=== PATIENT | male | born 1955 | race Caucasian/White ===

== ENCOUNTER 2016-12-23 12:09 | Observation (INO) ==
--- NOTE | 2016-12-23 12:21 | Emergency Department Note ---
Disposition Clinical Impression: Pleural effusion, Right upper quadrant abdominal pain, Headache, Vomiting, Hypokalemia, History of esophageal cancer, Elevated brain natriuretic peptide ( BNP) level, Cerebrovascular disease, Abnormal EKG, PVCs (premature ventricular contractions) Disposition: Admitted As Inpatient Referrals: Quirino Ramos DO [Primary Care Provider] - Forms: ED Satisfaction Letter, Work/School Release General Adult HPI - General Chief complaint: ED Abdominal Pain Stated complaint: N/V URQ pain Time Seen by Provider: 12/23/16 12:14 Source: patient, family Limitations: no limitations - History of Present Illness HPI Narrative: 61-year-old male with a history of soft legume malignancy and resection reports emergency department complaining of right upper abdominal pain with vomiting. He has had abdominal pain for 4 days. The patient is currently not anticoagulated. He denies bloody emesis or stool. There is no history of trauma or chest pain. There is no history of fever. The patient has had no shortness of breath leg swelling or pain on coughing up blood. The patient describes right upper abdominal pain, he denies previous cholecystectomy. There is no history of back pain. No history of syncope. He describes a headache. He reports he has a history of high blood pressure. No head trauma neck stiffness or rash. No convulsions or confusion. No dysarthria or unilateral arm weakness or numbness. The patient reports significant abdominal pain which has been persistent. Pain Scale: 0 - Related Data Home Medications Medication Instructions Recorded Confirmed Albuterol Sulfate [Ventolin Hfa] 2 puff IH Q4H PRN 07/14/15 10/31/16 Aspirin [Adult Low Dose Aspirin EC] 81 mg PO DAILY 07/14/15 10/31/16 Clopidogrel [Plavix] 75 mg PO DAILY 07/14/15 10/31/16 Losartan Potassium [Cozaar] 50 mg PO DAILY 07/14/15 10/31/16 Montelukast [Singulair] 10 mg PO DAILY 07/14/15 10/31/16 Morphine Sulfate SR (12 HR) [MS 60 mg PO Q12HR 07/14/15 10/31/16 Contin] Multivitamin [Multi-Day Vitamins] 1 tab PO DAILY 07/14/15 10/31/16 Pantoprazole Sodium [Protonix] 40 mg PO BID 07/14/15 10/31/16 Triamterene/HCTZ 37.5/25mg 1 tab PO BID 07/14/15 10/31/16 [Dyazide] Verapamil ER (24 HR) [Calan SR] 360 mg PO QAM 07/14/15 10/31/16 Metoclopramide [Reglan] 10 mg PO QIDAC 07/28/15 10/31/16 Oxycodone HCl [Oxycodone HCl] 20 mg PO Q3H PRN 10/31/16 10/31/16 Promethazine [Phenergan] 25 mg PO Q6HR PRN 10/31/16 10/31/16 Venlafaxine [Effexor] 37.5 mg PO DAILY 10/31/16 10/31/16 Zolpidem [Ambien] 10 mg PO HS 10/31/16 10/31/16 Allergies Allergy/AdvReac Type Severity Reaction Status Date / Time atenolol [From Tenormin] Allergy Hives Verified 07/14/15 13:43 Beta-Blockers Allergy Difficulty Verified 07/14/15 13:43 (Beta-Adrenergic Bloc Breathing midazolam [From Versed] AdvReac Agitated Verified 07/28/15 16:08 All systems ED: reviewed and negative except as stated. Past Medical History - Past Medical History Medical history: Reports: cancer, hypertension, myocardial infarction Surgical history: Reports: other Psychiatric history: Reports: no psych history - Social History Smoking Status: Former smoker Smokeless Tobacco Status: No Alcohol use: Reports: occasionally, recent Drug use: Reports: none Physical Exam - General Limitations: no limitations General appearance: alert, in no apparent distress - Head Head exam: atraumatic, normocephalic, normal inspection - Eye Eye exam: Present: normal appearance, PERRL, EOMI. Absent: scleral icterus, conjunctival injection, miosis, mydriasis - ENT ENT exam: normal exam, normal oropharynx, mucous membranes moist, TM's normal bilaterally, normal external ear exam - Neck Neck exam: Present: normal inspection, full ROM, trachea midline. Absent: meningismus - Chest Chest inspection: Present: symmetric chest wall rise. Absent: tenderness - Respiratory Respiratory exam: Present: normal lung sounds bilaterally. Absent: respiratory distress, wheezes, stridor, accessory muscle use, prolonged expiratory phase - Cardiovascular Cardiovascular exam: Present: regular rate, normal rhythm, normal heart sounds - Abdominal Exam Abdominal exam: Present: soft, tenderness, normal bowel sounds. Absent: distention, guarding, rebound, rigidity, Iqbal's sign, Rovsing's sign, tenderness at McBurney's Point, ascites, pulsatile mass Abdominal tenderness: Present: RUQ, moderate - Extremities Exam Extremities exam: Present: normal inspection, full ROM, normal capillary refill. Absent: tenderness, pedal edema, joint swelling, calf tenderness - Expanded Lower Extremity Exam Lower leg exam: Absent: Homans' sign Neurovascular/Tendon exam: Present: normal capillary refill. Absent: motor deficit, sensory deficit, tendon deficit, extremity cold to touch, pallor - Back Exam Back exam: Present: normal inspection, full ROM. Absent: tenderness, CVA tenderness (R), CVA tenderness (L), vertebral tenderness - Neurological Exam Neurological exam: Present: alert, oriented X3, CN II-XII intact. Absent: motor sensory deficit - Psychiatric Psychiatric exam: Present: normal affect, normal mood - Skin Skin exam: Present: warm, dry, intact, normal color. Absent: rash, cyanosis, diaphoresis, erythema, pallor, mottled Course Vital Signs Temperature 98.3 F 12/23/16 12:11 Pulse Rate 104 12/23/16 12:11 Respiratory Rate 18 12/23/16 12:11 Blood Pressure 180/121 12/23/16 12:11 O2 Sat by Pulse Oximetry 98 12/23/16 12:11 Temperature 98.3 F 12/23/16 12:11 Pulse Rate 82 12/23/16 13:45 Respiratory Rate 18 12/23/16 13:45 Blood Pressure 184/105 12/23/16 13:45 O2 Sat by Pulse Oximetry 97 12/23/16 13:45 Oxygen Delivery Oxygen Delivery Room Air Medical Decision Making - [facility] Narrative Medical decision making narrative: The patient has what appears to be a pleural effusion on the left side, his inflammatory infectious markers are essentially negative, BNP not markedly elevated, he has a history of esophageal malignancy and carcinomatous effusion could be considered. The patient has had recurrent vomiting, he does have a lecture like changes including hypokalemia. His EKG shows slight ST depressions and occasional PVCs. The patient complained of a headache, CT head negative. The patient's abdominal pain seems to be significant on examination but his CT shows no acute intra-abdominal process. Based on the patient's apparent pleural effusion, electrolyte abnormalities, recurrent vomiting, abnormal EKG, occasional PVCs, and history of malignancy, I thought it be appropriate to admit to the hospital for pain control, electrolyte management, and evaluation of pleural fluid left side, blood cultures been sent, antibiotic been initiated. The patient appears to be stable. I discussed the case with the last on-call who is except the patient to their care. The patient is currently stable pending admission. - Lab Data Result diagrams: 12/23/16 13:00 12/23/16 13:00 Lab Results 12/23/16 12/23/16 12/23/16 Range/Units 13:00 13:00 13:00 WBC 5.0 (4.3-11.1) K/mcL RBC 4.86 (4.19-5.50) M/mcL Hgb 15.1 (12.9-16.9) g/dL Hct 43.4 (37.5-50.1) % MCV 89.3 (83.0-100.0) fL MCH 31.1 (28.0-33.3) pg MCHC 34.8 (31.6-35.5) g/dL RDW 12.3 (11.5-14.5) % Plt Count 289 (140-400) K/mcL MPV 8.6 L (9.4-12.4) fL Immature Gran % 0.4 (0-4) % Seg Neutrophils % 72.5 % Lymphocytes % 15.3 % Monocytes % 11.2 % Eosinophils % 0.4 % Basophils % 0.2 % Neutrophils # 3.6 (1.6-8.9) K/mcL Lymphocytes # 0.8 (0.6-4.6) K/mcL Monocytes # 0.6 (0.0-1.3) K/mcL Eosinophils # 0.0 (0.0-0.6) K/mcL Basophils # 0.0 (0.0-0.2) K/mcL PT 11.2 (9.4-12.1) Seconds INR 1.0 APTT 32.7 (26.0-36.0) Seconds Sodium 132 L (136-145) mEq/L Potassium 3.1 L (3.5-4.5) mEq/L Chloride 94 L (98-109) mEq/L Carbon Dioxide 25 (19-29) mEq/L BUN 12 (8-26) mg/dL Creatinine 0.73 (0.72-1.25) mg/dL Est GFR ( Amer) > 60 (> 60) Est GFR (Non-Af Amer) > 60 (> 60) BUN/Creatinine Ratio 16 (6-26) Glucose 122 H (70-99) mg/dL Calculated Osmolality 275 L (280-300) Lactic Acid (0.5-2.2) mmol/L Calcium 9.2 (8.6-10.8) mg/dL Total Bilirubin 0.6 (0.2-1.2) mg/dL Direct Bilirubin 0.2 (0.0-0.5) mg/dL Indirect Bilirubin 0.4 (0.0-1.2) mg/dL AST 16 (5-34) Units/L ALT 15 (0-55) Units/L Alkaline Phosphatase 83 (38-126) Units/L Troponin I (0-0.03) ng/mL C-Reactive Protein (Less than 5) mg/L B-Natriuretic Peptide (0-100) pg/mL Serum Total Protein 7.0 (6.0-8.3) g/dL Albumin 3.7 (3.5-5.0) g/dL Globulin 3.3 (2.4-3.5) g/dL Albumin/Globulin Ratio 1.1 (1.1-2.2) Lipase 6 L (8-78) Units/L 12/23/16 12/23/16 12/23/16 Range/Units 13:00 13:00 13:00 WBC (4.3-11.1) K/mcL RBC (4.19-5.50) M/mcL Hgb (12.9-16.9) g/dL Hct (37.5-50.1) % MCV (83.0-100.0) fL MCH (28.0-33.3) pg MCHC (31.6-35.5) g/dL RDW (11.5-14.5) % Plt Count (140-400) K/mcL MPV (9.4-12.4) fL Immature Gran % (0-4) % Seg Neutrophils % % Lymphocytes % % Monocytes % % Eosinophils % % Basophils % % Neutrophils # (1.6-8.9) K/mcL Lymphocytes # (0.6-4.6) K/mcL Monocytes # (0.0-1.3) K/mcL Eosinophils # (0.0-0.6) K/mcL Basophils # (0.0-0.2) K/mcL PT (9.4-12.1) Seconds INR APTT (26.0-36.0) Seconds Sodium (136-145) mEq/L Potassium (3.5-4.5) mEq/L Chloride (98-109) mEq/L Carbon Dioxide (19-29) mEq/L BUN (8-26) mg/dL Creatinine (0.72-1.25) mg/dL Est GFR ( Amer) (> 60) Est GFR (Non-Af Amer) (> 60) BUN/Creatinine Ratio (6-26) Glucose (70-99) mg/dL Calculated Osmolality (280-300) Lactic Acid 0.8 (0.5-2.2) mmol/L Calcium (8.6-10.8) mg/dL Total Bilirubin (0.2-1.2) mg/dL Direct Bilirubin (0.0-0.5) mg/dL Indirect Bilirubin (0.0-1.2) mg/dL AST (5-34) Units/L ALT (0-55) Units/L Alkaline Phosphatase (38-126) Units/L Troponin I 0.01 (0-0.03) ng/mL C-Reactive Protein 1 (Less than 5) mg/L B-Natriuretic Peptide (0-100) pg/mL Serum Total Protein (6.0-8.3) g/dL Albumin (3.5-5.0) g/dL Globulin (2.4-3.5) g/dL Albumin/Globulin Ratio (1.1-2.2) Lipase (8-78) Units/L /18/17 Range/Units 13:00 WBC (4.3-11.1) K/mcL RBC (4.19-5.50) M/mcL Hgb (12.9-16.9) g/dL Hct (37.5-50.1) % MCV (83.0-100.0) fL MCH (28.0-33.3) pg MCHC (31.6-35.5) g/dL RDW (11.5-14.5) % Plt Count (140-400) K/mcL MPV (9.4-12.4) fL Immature Gran % (0-4) % Seg Neutrophils % % Lymphocytes % % Monocytes % % Eosinophils % % Basophils % % Neutrophils # (1.6-8.9) K/mcL Lymphocytes # (0.6-4.6) K/mcL Monocytes # (0.0-1.3) K/mcL Eosinophils # (0.0-0.6) K/mcL Basophils # (0.0-0.2) K/mcL PT (9.4-12.1) Seconds INR APTT (26.0-36.0) Seconds Sodium (136-145) mEq/L Potassium (3.5-4.5) mEq/L Chloride (98-109) mEq/L Carbon Dioxide (19-29) mEq/L BUN (8-26) mg/dL Creatinine (0.72-1.25) mg/dL Est GFR ( Amer) (> 60) Est GFR (Non-Af Amer) (> 60) BUN/Creatinine Ratio (6-26) Glucose (70-99) mg/dL Calculated Osmolality (280-300) Lactic Acid (0.5-2.2) mmol/L Calcium (8.6-10.8) mg/dL Total Bilirubin (0.2-1.2) mg/dL Direct Bilirubin (0.0-0.5) mg/dL Indirect Bilirubin (0.0-1.2) mg/dL AST (5-34) Units/L ALT (0-55) Units/L Alkaline Phosphatase (38-126) Units/L Troponin I (0-0.03) ng/mL C-Reactive Protein (Less than 5) mg/L B-Natriuretic Peptide 169 H (0-100) pg/mL Serum Total Protein (6.0-8.3) g/dL Albumin (3.5-5.0) g/dL Globulin (2.4-3.5) g/dL Albumin/Globulin Ratio (1.1-2.2) Lipase (8-78) Units/L
[2016-12-23] MEDS ORDERED: *HR* HYDROmorphone (PF) 1 MG/ML SYRINGE IVP ONE ×2 (13:07→16:49)
[2016-12-23] MEDS ORDERED: Ondansetron 4 MG/2 ML VIAL IVP ONE ×2 (13:07→16:49)
[2016-12-23 13:17] LABS: Basophils % 0.2 %; Eosinophils % 0.4 %; Hematocrit 43.4 % (37.5-50.1); Hemoglobin 15.1 g/dL (12.9-16.9); Immature Granulocytes % 0.4 % (0-4); Lymphocytes # 0.8 K/mcL (0.6-4.6); Lymphocytes % 15.3 %; Mean Corpuscular HGB Conc 34.8 g/dL (31.6-35.5); Mean Corpuscular Hemoglobin 31.1 pg (28.0-33.3); Mean Corpuscular Volume 89.3 fL (83.0-100.0); Mean Platelet Volume 8.6 fL (9.4-12.4); Monocytes # 0.6 K/mcL (0.0-1.3); Monocytes % 11.2 %; Neutrophils # 3.6 K/mcL (1.6-8.9); Platelet Count 289 K/mcL (140-400); Red Blood Count 4.86 M/mcL (4.19-5.50); Red Cell Distribution Width 12.3 % (11.5-14.5); Segmented Neutrophils % 72.5 %
[2016-12-23 13:24] LABS: Prothrombin Time 11.2 Seconds (9.4-12.1)
[2016-12-23 13:26] LABS: Activated Partial Thrombo Time 32.7 Seconds (26.0-36.0)
[2016-12-23 13:36] LABS: Alanine Aminotransferase 15 Units/L (0-55); Albumin 3.7 g/dL (3.5-5.0); Albumin/Globulin Ratio 1.1 (1.1-2.2); Alkaline Phosphatase 83 Units/L (38-126); Aspartate Amino Transferase 16 Units/L (5-34); BUN/Creatinine Ratio 16 (6-26); Bilirubin,Direct 0.2 mg/dL (0.0-0.5); Bilirubin,Indirect 0.4 mg/dL (0.0-1.2); Bilirubin,Total 0.6 mg/dL (0.2-1.2); Blood Urea Nitrogen 12 mg/dL (8-26); Calcium 9.2 mg/dL (8.6-10.8); Carbon Dioxide 25 mEq/L (19-29); Chloride 94 mEq/L (98-109); Globulin 3.3 g/dL (2.4-3.5); Glucose 122 mg/dL (70-99); Lipase 6 Units/L (8-78); Osmolality,Calculated 275 (280-300); Potassium 3.1 mEq/L (3.5-4.5); Sodium 132 mEq/L (136-145); eGFR For African Americans > 60 (> 60); eGFR For Non-African Americans > 60 (> 60)
[2016-12-23] MEDS ORDERED: Levofloxacin 750 MG/150 ML 750 MG/150 ML BAG IVPB ONE (15:57)
[2016-12-23] MEDS ORDERED: *HR* HYDROmorphone (PF) 1 MG/ML SYRINGE IVP PRN ×2 (19:34→19:44)
[2016-12-23] MEDS ORDERED: Naloxone 0.4 MG/ML INJ IVP PRN (19:34)
[2016-12-23] MEDS ORDERED: *HR* OxyCODONE Immed Rel 5 MG TABLET PO PRN (19:38)
[2016-12-23] MEDS ORDERED: Pantoprazole 40 MG VIAL IVP SCH (19:45)
[2016-12-23] MEDS ORDERED: 0.9 % Sodium Chloride 1,000 ML IVC SCH ×2 (19:45→22:31)
[2016-12-23] MEDS ORDERED: *HR* Promethazine 25 MG/ML VIAL IVP ONE (20:08)
[2016-12-23] MEDS: Famotidine 20 MG TABLET PO SCH (21:30)
[2016-12-23] MEDS: Aspirin Enteric Coated 81 MG Tablet PO SCH (21:31)
--- NOTE | 2016-12-23 21:36 | Internal Med History&Physical ---
Date of Encounter: 12/23/16 Time of Encounter: 21:32 Assessment and Plan (1) Nausea & vomiting Current visit: Yes Status: Acute Patient with nausea and vomiting since , and was having trouble keeping his medications down, including his pain medicine. He developed severe abdominal pain today. Zofran when necessary for nausea and vomiting Advance diet as tolerated, patient requesting to take PO medications and eat. IV fluids 0.9NS at 100mL/hr Qualifiers: Vomiting type: unspecified Vomiting Intractability: non-intractable Qualified Code(s): R11.2 - Nausea with vomiting, unspecified (2) History of esophagectomy Current visit: No Status: Chronic Patient with history of esophagectomy due to esophageal cancer. He is in remission and follows every 3 months to check for recurrence. He has periodic episodes of nausea and vomiting. He takes chronic narcotics for his cancer related pain. Continue home doses of Pepsid, Protonix. ZOfran PRN for nausea and vomiting. (3) Asthma Current visit: No Status: Chronic Continue singulair. PRN Albuterol inhaler for wheezing or SOB. Qualifiers: Asthma severity: mild intermittent Asthma complication type: uncomplicated Qualified Code(s): J45.20 - Mild intermittent asthma, uncomplicated (4) Hypertension Current visit: No Status: Chronic Patient hypertensive since arrival with blood pressures in 180s/100s, likely related to abdominal pain. ALso, patient reports he takes his medications in the evening. Continue home doses of losartan and verapamil. Hydralazine PRN for SBP > 160 or DBP > 100. Qualifiers: Hypertension type: essential hypertension Qualified Code(s): I10 - Essential (primary) hypertension (5) Abdominal pain Current visit: No Status: Chronic Patient reports severe abdominal pain. He has been nauseous and vomiting since . Patient on chronic narcotics related to previous cancer pain, and was unable to keep medications down. Abdominal pain may be related to withdrawal from pain medications. Patient reports he is able to take his PO medications now. Will continue his Morphine sulfate 60mg BID, and use dilaudid 2mg IVP q3hr for breakthrough pain. Transition to home dose of 20mg oxycodone Q3hr PRN once better tolerating PO. Zofran PRN for nausea. Narcan PRN for respiratory depression. Qualifiers: Abdominal location: upper abdomen, unspecified Qualified Code(s): R10.10 - Upper abdominal pain, unspecified (6) Hypokalemia Current visit: Yes Status: Acute Potassium of 3.1, likely related to nausea and vomiting. 40mEq of PO potassium given in ED. Will give 20mEq more. Recheck chemistry with morning labs. (7) DVT prophylaxis Current visit: No Status: Acute Internal Medicine - H&P: HPI Chief complaint: abdominal pain, nausea and vomiting Admitted From: Emergency Dept Plans for Post Hospital Care: Home History of present illness: Mr. Flood is a 61 year old male with hypertension, coronary artery disease, asthma, history of esophageal cancer status post esophagectomy with gastric pull -up presented to the emergency department today with complaints of abdominal pain, nausea and vomiting. Patient reports that the nausea and vomiting started on and progressed he was unable to keep down oral medications including his chronic pain medicine and he developed severe abdominal pain. Patient reports mild headache, chills, sweats. He denies any lightheadedness, chest pain, palpitations, shortness of breath, diarrhea. Evaluation in the emergency department included a head CT which showed no acute intracranial abnormality. CT of the abdomen and pelvis showed a small left pleural effusion with left lower lobe airspace atelectasis or pneumonia, chest x-ray showed small layering pleural effusion. BNP was mildly elevated at 169, troponin was normal at 0.01, lactate was normal at 0.8. He was mildly hypokalemic with potassium of 3.1. LFTs and lipase are within normal limits. White blood cell count was normal at 5.0. On exam, patient alert and oriented, in no acute distress. Heart has regular rate and rhythm, lungs are clear bilaterally to auscultation. Abdomen is tender to palpation in right upper quadrant and left upper quadrant. No peripheral edema. Past Med Surg Social Fam HX - Past Medical History Medical history: asthma, cancer (esophageal caner), hypertension, myocardial infarction Psychiatric history: no psych history - Past Surgical History Surgical History: cancer surgery (esophagectomy with gastric pull up), herniorrhaphy, other (cardiac ablation) - Social History Smoking Status: Former smoker Smokeless Tobacco Status: No Alcohol use: occasionally Drug use: none - Family History Father Living Status: Age at : 56 Cause of : Heart disease Hx Family Cardiac Disorders: Yes (heart disease, HTN) Hx Family Respiratory Disorders: Yes (emphysema) Hx Family Cancer: No Hx Family GI Disorders: No Hx Family Genitourinary Disorders: No Hx Family Endocrine Disorder: Yes (DM) Hx Family Musculoskeletal Disorders: No Hx Family Neuromuscular Disorders: No Hx Family Neurologic Disorders: No Hx Family HEENT Disorders: No Hx Family Autoimmune Disorders: No Hx Family Reproductive Disorders: No Hx Family Psychosocial Disorders: No Hx Family Medical Disorders: No Mother Living Status: Age at : 68 Cause of : liver Cancer Hx Family Cancer: Yes Internal Medicine - H&P: Meds Albuterol Sulfate [Ventolin Hfa] 2 puff IH Q4H PRN 07/14/15 [History] Aspirin [Adult Low Dose Aspirin EC] 81 mg PO DAILY 07/14/15 [History] Clopidogrel [Plavix] 75 mg PO DAILY 07/14/15 [History] Losartan Potassium [Cozaar] 50 mg PO DAILY 07/14/15 [History] Montelukast [Singulair] 10 mg PO DAILY 07/14/15 [History] Morphine Sulfate SR (12 HR) [MS Contin] 60 mg PO Q12HR 07/14/15 [History] Multivitamin [Multi-Day Vitamins] 1 tab PO DAILY 07/14/15 [History] Pantoprazole Sodium [Protonix] 40 mg PO BID 07/14/15 [History] Triamterene/HCTZ 37.5/25mg [Dyazide] 1 tab PO BID 07/14/15 [History] Verapamil ER (24 HR) [Calan SR] 360 mg PO QAM 07/14/15 [History] Oxycodone HCl [Oxycodone HCl] 20 mg PO Q3H PRN 10/31/16 [History] Venlafaxine [Effexor] 37.5 mg PO BID 10/31/16 [History] Dicyclomine [Bentyl] 20 mg PO Q6H PRN 12/23/16 [History] Allergies atenolol [From Tenormin] Allergy (Verified 12/23/16 17:06) Hives Beta-Blockers (Beta-Adrenergic Bloc Allergy (Verified 12/23/16 17:06) Difficulty Breathing midazolam [From Versed] Adverse Reaction (Verified 12/23/16 17:06) Agitated All Systems PM: A 10-system review of systems was performed and is negative for pertinent findings except as documented above in the HPI. - Constitutional Constitutional: chills, no fever(s), no night sweats - EENT Eyes: no change in vision, no discharge, no pain, no photophobia Ears: no ear discharge, no ear pain, no tinnitus Nose, mouth and throat: no dysphagia, no nasal discharge, no neck pain, no sore throat - Cardiovascular Cardiovascular ROS IM: no chest pain, no diaphoresis, no dyspnea, no lightheadedness, no palpitations, no syncope - Respiratory Respiratory: no cough, no dyspnea, no wheezing, no excessive phlegm production - Gastrointestinal Gastrointestinal: abdominal pain, nausea, vomiting, no diarrhea, no hematemesis , no hematochezia, no melena - Musculoskeletal Musculoskeletal ROS IM: no numbness, no tingling - Integumentary Integumentary IM: no rash, no unusual bruising - Neurological Neurological ROS: no confusion, no convulsions, no focal weakness, no numbness, no tingling, no tremor(s) - Hematologic/Lymphatic Hematologic/Lymphatic: no easy bruising - Constitutional Vitals: Temp Pulse Resp BP Pulse Ox 96.8 F L 133 24 150/117 92 12/23/16 20:39 12/23/16 20:39 12/23/16 20:39 12/23/16 20:39 12/23/16 20:39 General appearance: Present: A&O X 3, pleasant - Head Head exam: Present: atraumatic, normocephalic - Eye Eye exam: Present: PERRL, conjuntiva pink, sclera anicteric Pupils: Present: PERRL - Neck Neck exam general surgery: Present: supple, trachea midline. Absent: lymphadenopathy - Respiratory Respiratory exam: Present: CTAB. Absent: accessory muscle use, rales, rhonchi, wheezes - Cardiovascular Cardiovascular exam: Present: RRR, +S1, +S2. Absent: diastolic murmur, gallop, rubs, systolic murmur - GI/Abdominal GI/Abdominal exam: Present: normal bowel sounds, soft, tenderness, no peritoneal signs. Absent: distended - Extremities Exam Extremities exam: Present: warm, radial pulses palpable and symetrical. Absent : calf tenderness, cyanotic, pedal edema - Neurological Exam Neurological exam: Present: CN II-XII intact, oriented X3, no focal deficits. Absent: facial droop, speech deficit - Skin Skin exam: Present: dry, intact Internal Med - H&P Results - Labs CBC & Chem 7: 12/23/16 13:00 12/23/16 13:00 Labs: All Lab Results (24 Hours) 12/23/16 12/23/16 12/23/16 Range/Units 13:00 13:00 13:00 WBC 5.0 (4.3-11.1) K/mcL RBC 4.86 (4.19-5.50) M/mcL Hgb 15.1 (12.9-16.9) g/dL Hct 43.4 (37.5-50.1) % MCV 89.3 (83.0-100.0) fL MCH 31.1 (28.0-33.3) pg MCHC 34.8 (31.6-35.5) g/dL RDW 12.3 (11.5-14.5) % Plt Count 289 (140-400) K/mcL MPV 8.6 L (9.4-12.4) fL Immature Gran % 0.4 (0-4) % Seg Neutrophils % 72.5 % Lymphocytes % 15.3 % Monocytes % 11.2 % Eosinophils % 0.4 % Basophils % 0.2 % Neutrophils # 3.6 (1.6-8.9) K/mcL Lymphocytes # 0.8 (0.6-4.6) K/mcL Monocytes # 0.6 (0.0-1.3) K/mcL Eosinophils # 0.0 (0.0-0.6) K/mcL Basophils # 0.0 (0.0-0.2) K/mcL PT 11.2 (9.4-12.1) Seconds INR 1.0 APTT 32.7 (26.0-36.0) Seconds Sodium 132 L (136-145) mEq/L Potassium 3.1 L (3.5-4.5) mEq/L Chloride 94 L (98-109) mEq/L Carbon Dioxide 25 (19-29) mEq/L BUN 12 (8-26) mg/dL Creatinine 0.73 (0.72-1.25) mg/dL Est GFR ( Amer) > 60 (> 60) Est GFR (Non-Af Amer) > 60 (> 60) BUN/Creatinine Ratio 16 (6-26) Glucose 122 H (70-99) mg/dL Calculated Osmolality 275 L (280-300) Lactic Acid (0.5-2.2) mmol/L Calcium 9.2 (8.6-10.8) mg/dL Total Bilirubin 0.6 (0.2-1.2) mg/dL Direct Bilirubin 0.2 (0.0-0.5) mg/dL Indirect Bilirubin 0.4 (0.0-1.2) mg/dL AST 16 (5-34) Units/L ALT 15 (0-55) Units/L Alkaline Phosphatase 83 (38-126) Units/L Troponin I (0-0.03) ng/mL C-Reactive Protein (Less than 5) mg/L B-Natriuretic Peptide (0-100) pg/mL Serum Total Protein 7.0 (6.0-8.3) g/dL Albumin 3.7 (3.5-5.0) g/dL Globulin 3.3 (2.4-3.5) g/dL Albumin/Globulin Ratio 1.1 (1.1-2.2) Lipase 6 L (8-78) Units/L 12/23/16 12/23/16 12/23/16 Range/Units 13:00 13:00 13:00 WBC (4.3-11.1) K/mcL RBC (4.19-5.50) M/mcL Hgb (12.9-16.9) g/dL Hct (37.5-50.1) % MCV (83.0-100.0) fL MCH (28.0-33.3) pg MCHC (31.6-35.5) g/dL RDW (11.5-14.5) % Plt Count (140-400) K/mcL MPV (9.4-12.4) fL Immature Gran % (0-4) % Seg Neutrophils % % Lymphocytes % % Monocytes % % Eosinophils % % Basophils % % Neutrophils # (1.6-8.9) K/mcL Lymphocytes # (0.6-4.6) K/mcL Monocytes # (0.0-1.3) K/mcL Eosinophils # (0.0-0.6) K/mcL Basophils # (0.0-0.2) K/mcL PT (9.4-12.1) Seconds INR APTT (26.0-36.0) Seconds Sodium (136-145) mEq/L Potassium (3.5-4.5) mEq/L Chloride (98-109) mEq/L Carbon Dioxide (19-29) mEq/L BUN (8-26) mg/dL Creatinine (0.72-1.25) mg/dL Est GFR ( Amer) (> 60) Est GFR (Non-Af Amer) (> 60) BUN/Creatinine Ratio (6-26) Glucose (70-99) mg/dL Calculated Osmolality (280-300) Lactic Acid 0.8 (0.5-2.2) mmol/L Calcium (8.6-10.8) mg/dL Total Bilirubin (0.2-1.2) mg/dL Direct Bilirubin (0.0-0.5) mg/dL Indirect Bilirubin (0.0-1.2) mg/dL AST (5-34) Units/L ALT (0-55) Units/L Alkaline Phosphatase (38-126) Units/L Troponin I 0.01 (0-0.03) ng/mL C-Reactive Protein 1 (Less than 5) mg/L B-Natriuretic Peptide (0-100) pg/mL Serum Total Protein (6.0-8.3) g/dL Albumin (3.5-5.0) g/dL Globulin (2.4-3.5) g/dL Albumin/Globulin Ratio (1.1-2.2) Lipase (8-78) Units/L /18/17 Range/Units 13:00 WBC (4.3-11.1) K/mcL RBC (4.19-5.50) M/mcL Hgb (12.9-16.9) g/dL Hct (37.5-50.1) % MCV (83.0-100.0) fL MCH (28.0-33.3) pg MCHC (31.6-35.5) g/dL RDW (11.5-14.5) % Plt Count (140-400) K/mcL MPV (9.4-12.4) fL Immature Gran % (0-4) % Seg Neutrophils % % Lymphocytes % % Monocytes % % Eosinophils % % Basophils % % Neutrophils # (1.6-8.9) K/mcL Lymphocytes # (0.6-4.6) K/mcL Monocytes # (0.0-1.3) K/mcL Eosinophils # (0.0-0.6) K/mcL Basophils # (0.0-0.2) K/mcL PT (9.4-12.1) Seconds INR APTT (26.0-36.0) Seconds Sodium (136-145) mEq/L Potassium (3.5-4.5) mEq/L Chloride (98-109) mEq/L Carbon Dioxide (19-29) mEq/L BUN (8-26) mg/dL Creatinine (0.72-1.25) mg/dL Est GFR ( Amer) (> 60) Est GFR (Non-Af Amer) (> 60) BUN/Creatinine Ratio (6-26) Glucose (70-99) mg/dL Calculated Osmolality (280-300) Lactic Acid (0.5-2.2) mmol/L Calcium (8.6-10.8) mg/dL Total Bilirubin (0.2-1.2) mg/dL Direct Bilirubin (0.0-0.5) mg/dL Indirect Bilirubin (0.0-1.2) mg/dL AST (5-34) Units/L ALT (0-55) Units/L Alkaline Phosphatase (38-126) Units/L Troponin I (0-0.03) ng/mL C-Reactive Protein (Less than 5) mg/L B-Natriuretic Peptide 169 H (0-100) pg/mL Serum Total Protein (6.0-8.3) g/dL Albumin (3.5-5.0) g/dL Globulin (2.4-3.5) g/dL Albumin/Globulin Ratio (1.1-2.2) Lipase (8-78) Units/L - Diagnostic Studies CT scan - abdomen Additional comments: Abdomen/Pelvis CT 12/23/16 13:31 IMPRESSION: Very small left pleural effusion with dependent left lower lobe airspace disease, atelectasis and/or pneumonia. No acute intra-abdominopelvic findings D/ / Melyssa Sheehan Cha, MD / Melyssa Sheehan Cha, MD Interpreting Provider: Melyssa Sheehan Cha, MD Chest x-ray Additional comments: Chest X-Ray 12/23/16 15:56 IMPRESSION: Small layering left pleural effusion. D/ / 12/23/2016 16:17:21 Carter Miller MD / leticia Interpreting Provider: Carter Miller MD CT scan - head Additional comments: Head CT 12/23/16 13:30 IMPRESSION: No acute intracranial abnormality. Chronic microvascular white matter ischemic disease, unchanged. D/ / Fabrizio Carter MD / Fabrizio Carter MD Interpreting Provider: Fabrizio Carter MD
[2016-12-23] MEDS: Verapamil ER (24 HR) 180 MG TABLET.ER PO SCH (21:57)
[2016-12-23] MEDS: *HR* Morphine Sulfate SR (12 HR) 60 MG TABLET.ER PO SCH (22:01)
--- NOTE | 2016-12-24 | Event Note ---
Date of Encounter: 12/23/16 Time of Encounter: 23:57 Patient seen and examined with nurse practitioner. Patients with esophageal cancer status post esophagectomy presents with abdominal pain and vomiting. It seems that he has been experiencing this multiple times recently had an endoscopy 2 months ago for it and was unrevealing. CT scan of the abdomen and pelvis is unremarkable today, showed no evidence of gallbladder disease. lipase is normal. Suspect that he may be having some gastritis or withdrawal related to this pain medicines. He takes MS Contin 60 mg twice daily as well as oxycodone 20 mg Q3 hours as needed for breakthrough pain. Nonetheless he mentioned that he was able to keep most of his pain medicine down with few exceptions and does not think that season opiate withdrawal. We will start the patient on IV Protonix. Hydrates. Continue long-acting morphine. We will give Dilaudid 2 mg IV Q3 hours for breakthrough pain instead of oxycodone.
[2016-12-24] MEDS: *HR* HYDROmorphone (PF) 1 MG/ML SYRINGE IVP PRN ×6 (00:06→21:23)
[2016-12-24 04:30] LABS: Basophils % 0.2 %; Eosinophils % 0.3 %; Hematocrit 42.5 % (37.5-50.1); Hemoglobin 14.6 g/dL (12.9-16.9); Immature Granulocytes % 0.3 % (0-4); Lymphocytes # 1.2 K/mcL (0.6-4.6); Lymphocytes % 19.2 %; Mean Corpuscular HGB Conc 34.4 g/dL (31.6-35.5); Mean Corpuscular Hemoglobin 31.1 pg (28.0-33.3); Mean Corpuscular Volume 90.4 fL (83.0-100.0); Mean Platelet Volume 8.8 fL (9.4-12.4); Monocytes # 0.6 K/mcL (0.0-1.3); Monocytes % 9.5 %; Neutrophils # 4.5 K/mcL (1.6-8.9); Platelet Count 293 K/mcL (140-400); Red Cell Distribution Width 12.4 % (11.5-14.5); Segmented Neutrophils % 70.5 %
[2016-12-24 04:46] LABS: BUN/Creatinine Ratio 17 (6-26); Blood Urea Nitrogen 12 mg/dL (8-26); Calcium 8.8 mg/dL (8.6-10.8); Carbon Dioxide 26 mEq/L (19-29); Chloride 97 mEq/L (98-109); Glucose 91 mg/dL (70-99); Osmolality,Calculated 275 (280-300); Potassium 3.7 mEq/L (3.5-4.5); Sodium 133 mEq/L (136-145); eGFR For African Americans > 60 (> 60); eGFR For Non-African Americans > 60 (> 60)
[2016-12-24] MEDS ORDERED: *HR* Morphine Sulfate SR (12 HR) 60 MG TABLET.ER PO SCH (06:00)
[2016-12-24] MEDS: *HR* Morphine Sulfate SR (12 HR) 60 MG TABLET.ER PO SCH ×2 (06:31→20:26)
--- NOTE | 2016-12-24 08:55 | Internal Med Progress Note ---
<AbisaiColby redman - Last Filed: 12/24/16 09:27> Date of Encounter: 12/24/16 Time of Encounter: 08:54 - Assessment and plan (1) Nausea & vomiting Current Visit: Yes Status: Resolved Assessment and plan: Resolved at this time. Likely related to viral gastroenteritis. Patient is eating and drinking this morning without difficulty. We will stop IV fluids. Qualifiers: Vomiting type: unspecified Vomiting Intractability: non-intractable Qualified Code(s): R11.2 - Nausea with vomiting, unspecified (2) History of esophagectomy Current Visit: No Status: Chronic Assessment and plan: Patient is not having any difficulty swallowing. Continue home medications. (3) Hypertension Current Visit: No Status: Chronic Assessment and plan: Patient was hypertensive on arrival, likely related to nausea and vomiting as well as pain. Blood pressure is much improved. Continue home medications. Qualifiers: Hypertension type: essential hypertension Qualified Code(s): I10 - Essential (primary) hypertension (4) Abdominal pain Current Visit: No Status: Chronic Assessment and plan: Chronic issue related to history of esophageal cancer. Pain is much improved patient is able to keep down his oral medications. Continue his home pain regimen. Qualifiers: Abdominal location: upper abdomen, unspecified Qualified Code(s): R10.10 - Upper abdominal pain, unspecified (5) Hypokalemia Current Visit: Yes Status: Acute Assessment and plan: Likely related to vomiting. Has improved today with supplementation. (6) DVT prophylaxis Current Visit: No Status: Acute Assessment and plan: EPCDs - Subjective Interval history: Patient seen and examined at bedside. Patient states he feels much better today. He was able to eat this morning and did not have any episodes of nausea and vomiting. He states his pain is improved - Constitutional Vitals: Temp Pulse Resp BP Pulse Ox 98.0 F 87 16 104/77 97 12/24/16 06:54 12/24/16 06:54 12/24/16 06:54 12/24/16 06:54 12/24/16 06:54 General appearance: Present: A&O X 3, pleasant - Respiratory Respiratory exam: Present: CTAB. Absent: rales, rhonchi, wheezes - Cardiovascular Cardiovascular exam: Present: RRR. Absent: gallop, rubs, systolic murmur - GI/Abdominal GI/Abdominal exam: Present: normal bowel sounds, soft. Absent: distended, tenderness - Extremities Exam Extremities exam: Present: warm. Absent: pedal edema, tenderness Internal Medicine: Result - Labs CBC & Chem 7: 12/24/16 04:21 12/24/16 04:21 Labs: Short CBC 12/24/16 Range/Units 04:21 WBC 6.4 (4.3-11.1) K/mcL Hgb 14.6 (12.9-16.9) g/dL Hct 42.5 (37.5-50.1) % Plt Count 293 (140-400) K/mcL Neutrophils # 4.5 (1.6-8.9) K/mcL BMP 12/24/16 04:21 Sodium 133 L Potassium 3.7 Chloride 97 L Carbon Dioxide 26 BUN 12 Creatinine 0.70 L Glucose 91 Calcium 8.8 - ABG Interpretation ABG results: PT/INR, D-dimer PT 11.2 Seconds (9.4-12.1) 12/23/16 13:00 Consult Discharge Plan - Plan Referrals: Quirino Ramos DO [Primary Care Provider] - <ErrolJeri - Last Filed: 12/24/16 13:46> Date of Encounter: 12/24/16 - Constitutional Vitals: Temp Pulse Resp BP Pulse Ox 98.1 F 93 18 99/71 93 12/24/16 10:59 12/24/16 10:59 12/24/16 10:59 12/24/16 10:59 12/24/16 10:59 Internal Medicine: Result - Labs CBC & Chem 7: 12/24/16 04:21 12/24/16 04:21 Labs: Short CBC 12/24/16 Range/Units 04:21 WBC 6.4 (4.3-11.1) K/mcL Hgb 14.6 (12.9-16.9) g/dL Hct 42.5 (37.5-50.1) % Plt Count 293 (140-400) K/mcL Neutrophils # 4.5 (1.6-8.9) K/mcL BMP 12/24/16 04:21 Sodium 133 L Potassium 3.7 Chloride 97 L Carbon Dioxide 26 BUN 12 Creatinine 0.70 L Glucose 91 Calcium 8.8 - ABG Interpretation ABG results: PT/INR, D-dimer PT 11.2 Seconds (9.4-12.1) 12/23/16 13:00 - Attending Attestation I saw and examined pt. I have discussed with Resident Dr Robledo regarding pt's management plan. I agree with the documentation. Pt's nausea and vomiting has resolved. He has similar episodes previously and concern for cholecystitis/cholelithiasis. Will order US abd. Cont supportive treatment.
[2016-12-24] MEDS ORDERED: Verapamil ER (24 HR) 180 MG TABLET.ER PO SCH (09:00)
[2016-12-24] MEDS ORDERED: Aspirin Enteric Coated 81 MG Tablet PO SCH (09:00)
[2016-12-24] MEDS: Aspirin Enteric Coated 81 MG Tablet PO SCH (09:01)
[2016-12-24] MEDS: Famotidine 20 MG TABLET PO SCH (09:02)
[2016-12-24] MEDS: *HR* Heparin 5,000 UNIT/ML VIAL SQ SCH (17:42)
[2016-12-24] MEDS: Ondansetron 4 MG/2 ML VIAL IVP PRN (17:42)
--- NOTE | 2016-12-24 17:51 | Electrocardiograph Report ---
[place] [id number] Test Date: 2016-12-23 Pat Name: Robert Flood Department: 102 Room: 2NE22 Gender: M [employer]: Naz : 1955 Requested By: Matthias Lantigua Order Number: [id number] Reading MD: Mc Vanegas MD Measurements Intervals [place] Rate: 78 P: 56 TN: 148 QRS: 57 QRSD: 105 T: 36 QT: 428 QTc: 462 Interpretive Statements SINUS RHYTHM WITH OCCASIONAL VENTRICULAR PREMATURE COMPLEXES PROLONGED QT INTERVAL Electronically Signed On 12-24-2016 17:49:43 EDT by Mc Vanegas MD
[2016-12-24] MEDS ORDERED: *HR* Promethazine 25 MG/ML VIAL IVP ONE (18:32)
[2016-12-24] MEDS: Verapamil ER (24 HR) 180 MG TABLET.ER PO SCH (21:22)
[2016-12-25] MEDS: *HR* OxyCODONE Immed Rel 5 MG TABLET PO PRN ×3 (00:04→18:35)
[2016-12-25] MEDS: *HR* Heparin 5,000 UNIT/ML VIAL SQ SCH ×2 (05:43→17:11)
[2016-12-25] MEDS: *HR* Morphine Sulfate SR (12 HR) 60 MG TABLET.ER PO SCH ×2 (05:44→17:10)
[2016-12-25] MEDS: Aspirin Enteric Coated 81 MG Tablet PO SCH (07:46)
[2016-12-25] MEDS: Ondansetron 4 MG/2 ML VIAL IVP PRN (08:32)
[2016-12-25] MEDS ORDERED: *HR* HYDROmorphone 2 MG/ML SYRINGE ONE (08:42)
[2016-12-25] MEDS: *HR* HYDROmorphone 2 MG/ML SYRINGE IVP PRN ×2 (08:50→15:14)
[2016-12-25 09:08] LABS: Basophils % 0.1 %; Eosinophils % 0.5 %; Hematocrit 42.8 % (37.5-50.1); Hemoglobin 15.3 g/dL (12.9-16.9); Immature Granulocytes % 0.3 % (0-4); Lymphocytes # 1.8 K/mcL (0.6-4.6); Lymphocytes % 24.1 %; Mean Corpuscular HGB Conc 35.7 g/dL (31.6-35.5); Mean Corpuscular Volume 89.5 fL (83.0-100.0); Mean Platelet Volume 8.8 fL (9.4-12.4); Monocytes # 0.8 K/mcL (0.0-1.3); Monocytes % 10.2 %; Neutrophils # 4.9 K/mcL (1.6-8.9); Platelet Count 319 K/mcL (140-400); Red Blood Count 4.78 M/mcL (4.19-5.50); Red Cell Distribution Width 12.8 % (11.5-14.5); Segmented Neutrophils % 64.8 %
[2016-12-25 09:21] LABS: Alanine Aminotransferase 14 Units/L (0-55); Albumin 3.6 g/dL (3.5-5.0); Albumin/Globulin Ratio 1.1 (1.1-2.2); Alkaline Phosphatase 80 Units/L (38-126); Aspartate Amino Transferase 14 Units/L (5-34); BUN/Creatinine Ratio 19 (6-26); Bilirubin,Direct 0.2 mg/dL (0.0-0.5); Bilirubin,Indirect 0.4 mg/dL (0.0-1.2); Bilirubin,Total 0.6 mg/dL (0.2-1.2); Blood Urea Nitrogen 15 mg/dL (8-26); Calcium 9.3 mg/dL (8.6-10.8); Carbon Dioxide 25 mEq/L (19-29); Chloride 97 mEq/L (98-109); Globulin 3.2 g/dL (2.4-3.5); Glucose 149 mg/dL (70-99); Osmolality,Calculated 278 (280-300); Potassium 3.1 mEq/L (3.5-4.5); Sodium 132 mEq/L (136-145); Total Protein 6.8 g/dL (6.0-8.3); eGFR For African Americans > 60 (> 60); eGFR For Non-African Americans > 60 (> 60)
--- NOTE | 2016-12-25 15:30 | Discharge Summary ---
<Colby Hutchins - Last Filed: 12/25/16 15:27> Date of Encounter: 12/25/16 Time of Encounter: 15:27 - Discharge Diagnosis (1) Nausea & vomiting Priority: Primary Status: Acute Qualifiers: Vomiting type: unspecified Vomiting Intractability: non-intractable Qualified Code(s): R11.2 - Nausea with vomiting, unspecified (2) History of esophagectomy Priority: Secondary Status: Chronic (3) Hypertension Priority: Secondary Status: Chronic Qualifiers: Hypertension type: essential hypertension Qualified Code(s): I10 - Essential (primary) hypertension (4) Abdominal pain Priority: Primary Status: Acute Qualifiers: Abdominal location: upper abdomen, unspecified Qualified Code(s): R10.10 - Upper abdominal pain, unspecified (5) Hypokalemia Priority: Secondary Status: Acute (6) DVT prophylaxis Priority: Secondary Status: Acute - Discharge Medications Home Medications: Albuterol Sulfate [Ventolin Hfa] 2 puff IH Q4H PRN 07/14/15 [History] Aspirin [Adult Low Dose Aspirin EC] 81 mg PO DAILY 07/14/15 [History] Clopidogrel [Plavix] 75 mg PO DAILY 07/14/15 [History] Losartan Potassium [Cozaar] 50 mg PO DAILY 07/14/15 [History] Montelukast [Singulair] 10 mg PO DAILY 07/14/15 [History] Morphine Sulfate SR (12 HR) [MS Contin] 60 mg PO Q12HR 07/14/15 [History] Multivitamin [Multi-Day Vitamins] 1 tab PO DAILY 07/14/15 [History] Pantoprazole Sodium [Protonix] 40 mg PO BID 07/14/15 [History] Triamterene/HCTZ 37.5/25mg [Dyazide] 1 tab PO BID 07/14/15 [History] Verapamil ER (24 HR) [Calan SR] 360 mg PO QAM 07/14/15 [History] Oxycodone HCl 20 mg PO Q3H PRN 10/31/16 [History] Venlafaxine [Effexor] 37.5 mg PO BID 10/31/16 [History] Dicyclomine [Bentyl] 20 mg PO Q6H PRN 12/23/16 [History] Allergies/Adverse Reactions: Allergies atenolol [From Tenormin] Allergy (Verified 12/23/16 17:06) Hives Beta-Blockers (Beta-Adrenergic Bloc Allergy (Verified 12/23/16 17:06) Difficulty Breathing midazolam [From Versed] Adverse Reaction (Verified 12/23/16 17:06) Agitated Procedures/tests Complete & Pending: Procedures Performed prior 72 hours Category Date Time Status US liver [US] Routine Exams 12/24/16 16:00 Completed Date of admission: 12/23/16 17:37 Primary care physician: Prerna Dumont Consults: 12/23/16 20:39 Consult to Remedial Reading Teacher [CONS] Routine Reason for SW Consult: pt and family requesting need for HH upon d/c Discharging clinician: Colby Hutchins Anticipated date of discharge: 12/25/16 - Patient Status Disposition: Transfer Short-Term Hosp Condition: Fair Functional capacity at discharge: independent ambulation Overall status at discharge: patient is not back to baseline - Discharge Instructions Follow Up With: Quirino Ramos DO [Primary Care Provider] - - Diet and Activity Activity: increase activity as tolerated Diet: other (Full liquid diet.) Interval History: Patient seen and examined at bedside. Patient reports increased nausea and dry heaves. Patient also reports increase in epigastric and right upper quadrant abdominal pain. Patient feels like he overdid it with his diet yesterday and is requesting only liquids today. Hospital course: Mr. Flood is a 61 year old male with history of esophageal cancer status post esophagectomy approximately 2 years ago presented with intractable nausea and vomiting. Patient was admitted with nausea and vomiting and severe pain with the inability to keep down by mouth intake. Patient was treated with IV fluids and kept nothing by mouth and treated with antiemetics and initially had a response and attempted to eat yesterday. However, today the patient had a recurrence of his nausea and vomiting and epigastric and right upper quadrant abdominal pain and was not able to tolerate by mouth intake. Right upper quadrant ultrasound was performed which showed gallbladder sludge and a dilated common bile duct to 1 cm. Liver enzymes were negative. Given the patient's extensive history and his medical care being provided by the [facility] without it and the best interest of the patient to transfer him to the facility where his surgical team and other caregivers are at. Patient was agreeable to transfer. Patient was stable at time of discharge. - Time Spent with Patient Total time spent providing and/or coordinating discharge services: - Constitutional Vitals: Temp Pulse Resp BP Pulse Ox 97.9 F 105 18 158/104 96 12/25/16 11:20 12/25/16 11:20 12/25/16 11:20 12/25/16 11:20 12/25/16 11:20 General appearance: Present: A&O X 3 Exam: Appears uncomfortable. - Respiratory Respiratory exam: Present: CTAB. Absent: rales, rhonchi, wheezes - Cardiovascular Cardiovascular exam: Present: RRR. Absent: gallop, rubs, systolic murmur - GI/Abdominal GI/Abdominal exam: Present: normal bowel sounds, soft, tenderness (Epigastric and right upper quadrant), no peritoneal signs. Absent: distended Additional comments: Iqbal sign negative. - Neurological Exam Neurological exam: Present: alert, CN II-XII intact, oriented X3, no focal deficits <Arabella,Samuel P - Last Filed: 12/25/16 16:34> Date of Encounter: 12/25/16 Procedures/tests Complete & Pending: Procedures Performed prior 72 hours Category Date Time Status US liver [US] Routine Exams 12/24/16 16:00 Completed Date of admission: 12/23/16 17:37 Primary care physician: Prerna Dumont Consults: 12/23/16 20:39 Consult to Remedial Reading Teacher [CONS] Routine Reason for SW Consult: pt and family requesting need for HH upon d/c Hospital course: Mr. Flood is a 61 year old male - Time Spent with Patient Total time spent providing and/or coordinating discharge services: - Constitutional Vitals: Temp Pulse Resp BP Pulse Ox 97.8 F 103 18 130/83 99 12/25/16 15:46 12/25/16 15:46 12/25/16 15:46 12/25/16 15:46 12/25/16 15:46 - Attending Attestation I examined this patient and my medical decision-making was reviewed with the PERSONNEL INTERVIEWER/PA/Advanced Practice Nurse/Resident Physician. I agree with the documented findings, disposition and treatment plan as described except to the extent set forth below. Dilated CBD with normal LFTs History of previous esophagectomy. Persistent abdominal pain and all previous workup in [facility] Patient is keen and transfer to [facility]
[2016-12-25 15:50] VITALS: BP 130/83
== END 2016-12-25 18:44 | disposition short-term general hospital (02) ==
LOC: EMEROO 12:09 → 2NENU 12:09 → SUATTDRO 17:37 → 2NENU 19:08
PROVIDERS: ADMIT Nurse Practitioner Family; ATTEND Internal Medicine

== ENCOUNTER 2017-07-25 17:25 | Observation (INO) ==
[2017-07-25] MEDS ORDERED: 0.9 % Sodium Chloride 1,000 ML IVC ONE (17:54)
[2017-07-25] MEDS ORDERED: Ondansetron 4 MG/2 ML VIAL IVP ONE (17:54)
[2017-07-25] MEDS ORDERED: *HR* HYDROmorphone (PF) 1 MG/ML SYRINGE IVP ONE ×4 (17:54→21:50)
[2017-07-25 18:33] LABS: Basophils % 0.2 %; Eosinophils % 0.4 %; Hemoglobin 13.7 g/dL (12.9-16.9); Immature Granulocytes % 0.6 % (0-4); Lymphocytes # 0.5 K/mcL (0.6-4.6); Mean Corpuscular HGB Conc 34.3 g/dL (31.6-35.5); Mean Corpuscular Hemoglobin 30.9 pg (28.0-33.3); Mean Corpuscular Volume 90.1 fL (83.0-100.0); Mean Platelet Volume 8.4 fL (9.4-12.4); Monocytes # 0.4 K/mcL (0.0-1.3); Monocytes % 7.7 %; Neutrophils # 4.2 K/mcL (1.6-8.9); Platelet Count 224 K/mcL (140-400); Red Blood Count 4.44 M/mcL (4.19-5.50); Red Cell Distribution Width 12.5 % (11.5-14.5); Segmented Neutrophils % 81.1 %
[2017-07-25 18:48] LABS: Alanine Aminotransferase 10 Units/L (7-52); Albumin 3.8 g/dL (3.5-5.7); Albumin/Globulin Ratio 1.3 (1.1-2.2); Alkaline Phosphatase 100 Units/L (34-104); Aspartate Amino Transferase 13 Units/L (13-39); BUN/Creatinine Ratio 20 (6-26); Bilirubin,Direct 0.1 mg/dL (0.0-0.2); Bilirubin,Indirect 0.3 mg/dL (0.0-1.2); Bilirubin,Total 0.4 mg/dL (0.3-1.0); Blood Urea Nitrogen 13 mg/dL (8-23); Calcium 8.5 mg/dL (8.6-10.3); Carbon Dioxide 29 mEq/L (23-29); Chloride 92 mEq/L (98-107); Globulin 2.9 g/dL (2.4-3.5); Glucose 143 mg/dL (70-105); Lipase 10 Units/L (11-82); Osmolality,Calculated 275 (280-300); Potassium 2.8 mEq/L (3.5-5.1); Sodium 131 mEq/L (136-145); Total Protein 6.7 g/dL (6.4-8.9); eGFR For African Americans > 60 (> 60); eGFR For Non-African Americans > 60 (> 60)
--- NOTE | 2017-07-25 19:13 | Emergency Department Note ---
Disposition Clinical Impression: Abdominal pain Qualifiers: Abdominal location: right upper quadrant Qualified Code(s): R10.11 - Right upper quadrant pain Vomiting Qualifiers: Vomiting type: unspecified Vomiting Intractability: intractable Nausea presence : without nausea Qualified Code(s): R11.11 - Vomiting without nausea Disposition: Admitted As Inpatient Condition: Fair Abdominal Pain HPI - General Chief Complaint: ED Abdominal Pain Stated Complaint: ABD PAIN Time Seen by Provider: 07/25/17 17:35 Source: patient, family Nursing Notes Reviewed: Yes Vital Signs Reviewed: Yes - History of Present Illness HPI Narrative: 62-year-old male presents because of upper abdominal pain and vomiting. He began 2 days ago with vomiting and has been relentless. Pain later evolved in the epigastrium and right upper quadrant. No chest pain or dyspnea. No fevers. No diarrhea. Onset (ago): day(s) Consistency: constant Location: RUQ, epigastric Pain Severity: moderate Pain Scale: 7 Quality: stabbing, aching Radiation: none Migration to: no migration Improves with: nothing Worsens with: vomiting - Related Data Home Medications Medication Instructions Recorded Confirmed Albuterol Sulfate [Ventolin Hfa] 2 puff IH Q4H PRN 07/25/17 07/25/17 Amoxicillin/Clavulanate [Augmentin] 875 mg PO BID 07/25/17 07/25/17 Aspirin Enteric Coated [Aspirin EC] 81 mg PO DAILY 07/25/17 07/25/17 Clopidogrel [Plavix] 75 mg PO QPM 07/25/17 07/25/17 Dicyclomine [Bentyl] 20 mg PO QID PRN 07/25/17 07/25/17 Losartan Potassium [Cozaar] 50 mg PO QPM 07/25/17 07/25/17 Montelukast [Singulair] 10 mg PO QPM 07/25/17 07/25/17 Morphine Sulfate SR (12 HR) [MS 60 mg PO Q12H 07/25/17 07/25/17 Contin] Morphine Sulfate [Morphine Oral 20 mg PO Q1H PRN 07/25/17 07/25/17 Solution] Multivitamin [One Daily Essential] 1 each PO DAILY 07/25/17 07/25/17 Ondansetron [Zofran ODT] 8 mg SL TID PRN 07/25/17 07/25/17 OxyCODONE Immed Rel [Roxicodone 20 20 mg PO Q3H PRN 07/25/17 07/25/17 MG] Pantoprazole Sodium [Pantoprazole 40 mg PO BID 07/25/17 07/25/17 Sodium] Triamterene/HCTZ 37.5/25mg 1 each PO BID 07/25/17 07/25/17 [Dyazide] Verapamil HCl [Verapamil HCl] 360 mg PO QPM 07/25/17 07/25/17 Zolpidem [Ambien] 10 mg PO HS PRN 07/25/17 07/25/17 predniSONE [PredniSONE] 40 mg PO DAILY 07/25/17 07/25/17 Allergies Allergy/AdvReac Type Severity Reaction Status Date / Time Beta-Blockers Allergy Palpitation Verified 07/25/17 17:30 (Beta-Adrenergic Bloc s metoclopramide [From Reglan] Allergy Blurry Verified 07/25/17 17:30 Vision [facility] systems ED: reviewed and negative except as stated. Gastrointestinal: Reports: abdominal pain, nausea, vomiting. Denies: diarrhea, hematemesis Abdominal Pain PMH - Past Medical History Medical history: Reports: asthma, cancer, myocardial infarction Male Surgical History: Reports: herniorrhaphy, other (Distal esophageal resection with gastric pull-through) - Social History Smoking status: Former smoker Alcohol use: Reports: none Drug use: Reports: none Physical Exam - General Limitations: no limitations General appearance: alert, in no apparent distress - Head Head exam: atraumatic, normocephalic - ENT ENT exam: mucous membranes dry - Neck Neck exam: Present: trachea midline - Respiratory Respiratory exam: Present: normal lung sounds bilaterally. Absent: respiratory distress - Cardiovascular Cardiovascular exam: Present: regular rate, normal rhythm - Abdominal Exam Abdominal exam: Present: tenderness, normal bowel sounds Abdominal tenderness: Present: RUQ, epigastrium - Extremities Exam Extremities exam: Present: normal inspection - Expanded Lower Extremity Exam Lower leg exam: Present: normal inspection. Absent: tenderness Neurovascular/Tendon exam: Present: normal capillary refill - Back Exam Back exam: Present: normal inspection - Neurological Exam Neurological exam: Present: alert, oriented X3 - Psychiatric Psychiatric exam: Present: normal affect, normal mood - Skin Skin exam: Present: warm, dry Course - Reevaluation(s) Reevaluation #1: We will proceed with CT imaging. Continues with moderate pain and nausea. Signed out to Dr. Carbajal Time: 19:15 Vital Signs Temperature 97.5 F L 07/25/17 17:26 Pulse Rate 103 07/25/17 17:26 Respiratory Rate 20 07/25/17 17:26 Blood Pressure 166/109 07/25/17 17:26 O2 Sat by Pulse Oximetry 98 07/25/17 17:26 Temperature 98.1 F 07/26/17 06:59 Pulse Rate 92 07/26/17 06:59 Respiratory Rate 16 07/26/17 06:59 Blood Pressure 184/104 07/26/17 06:59 O2 Sat by Pulse Oximetry 96 07/26/17 06:59 Oxygen Delivery Oxygen Delivery Room Air Abdominal Pain - Lab Data Result diagrams: 07/26/17 05:00 07/26/17 05:00 Lab Results 07/25/17 07/25/17 07/25/17 Range/Units 18:26 18:26 18:26 WBC 5.2 (4.3-11.1) K/mcL RBC 4.44 (4.19-5.50) M/mcL Hgb 13.7 (12.9-16.9) g/dL Hct 40.0 (37.5-50.1) % MCV 90.1 (83.0-100.0) fL MCH 30.9 (28.0-33.3) pg MCHC 34.3 (31.6-35.5) g/dL RDW 12.5 (11.5-14.5) % Plt Count 224 (140-400) K/mcL MPV 8.4 L (9.4-12.4) fL Immature Gran % 0.6 (0-4) % Seg Neutrophils % 81.1 % Lymphocytes % 10.0 % Monocytes % 7.7 % Eosinophils % 0.4 % Basophils % 0.2 % Neutrophils # 4.2 (1.6-8.9) K/mcL Lymphocytes # 0.5 L (0.6-4.6) K/mcL Monocytes # 0.4 (0.0-1.3) K/mcL Eosinophils # 0.0 (0.0-0.6) K/mcL Basophils # 0.0 (0.0-0.2) K/mcL Sodium 131 L (136-145) mEq/L Potassium 2.8 L (3.5-5.1) mEq/L Chloride 92 L (98-107) mEq/L Carbon Dioxide 29 (23-29) mEq/L BUN 13 (8-23) mg/dL Creatinine 0.65 L (0.70-1.30) mg/dL Est GFR ( Amer) > 60 (> 60) Est GFR (Non-Af Amer) > 60 (> 60) BUN/Creatinine Ratio 20 (6-26) Glucose 143 H (70-105) mg/dL Calculated Osmolality 275 L (280-300) Lactic Acid 1.0 (0.5-2.2) mmol/L Calcium 8.5 L (8.6-10.3) mg/dL Total Bilirubin 0.4 (0.3-1.0) mg/dL Direct Bilirubin 0.1 (0.0-0.2) mg/dL Indirect Bilirubin 0.3 (0.0-1.2) mg/dL AST 13 (13-39) Units/L ALT 10 (7-52) Units/L Alkaline Phosphatase 100 (34-104) Units/L Serum Total Protein 6.7 (6.4-8.9) g/dL Albumin 3.8 (3.5-5.7) g/dL Globulin 2.9 (2.4-3.5) g/dL Albumin/Globulin Ratio 1.3 (1.1-2.2) Lipase 10 L (11-82) Units/L
[2017-07-25] MEDS ORDERED: *HR* Promethazine 25 MG/ML VIAL IVP ONE (19:26)
--- NOTE | 2017-07-25 20:13 | Emergency Department Note ---
Disposition Clinical Impression: RUQ abdominal pain Abdominal pain Qualifiers: Abdominal location: right upper quadrant Qualified Code(s): R10.11 - Right upper quadrant pain Vomiting Qualifiers: Vomiting type: unspecified Vomiting Intractability: intractable Nausea presence : without nausea Qualified Code(s): R11.11 - Vomiting without nausea Disposition: Admitted As Inpatient Condition: Fair General Adult HPI - General Chief complaint: ED Abdominal Pain Stated complaint: ABD PAIN Time Seen by Provider: 07/25/17 17:35 Source: patient, family Limitations: no limitations Nursing Notes Reviewed: Yes Vital Signs Reviewed: Yes - History of Present Illness HPI Narrative: Mr. Flood, 62-year-old male, presents from home for epigastric pain, nausea, vomiting. Patient has a history of esophagectomy secondary to esophageal cancer. It esophageal reconstruction with his stomach. He has baseline intermittent nausea with vomiting with Zofran and Phenergan. He presents today because he had had persistent nausea and vomiting x4 days which has been relentless and unimproved with Zofran and Phenergan. He has exquisite epigastric pain which has broken through his current home opioid regimen. He has had minimal by mouth intake for the past 4 days. ROS: Positive: Above Name: Fever, chills, chest pains, palpitations, hematochezia, back pains, changes in bowel or bladder Pain Scale: 7 - Related Data Allergies Allergy/AdvReac Type Severity Reaction Status Date / Time Beta-Blockers Allergy Palpitation Verified 07/25/17 17:30 (Beta-Adrenergic Bloc s metoclopramide [From Reglan] Allergy Blurry Verified 07/25/17 17:30 Vision All systems ED: reviewed and negative except as stated. Review of Systems: As Per HPI Gastrointestinal: Reports: abdominal pain, nausea, vomiting. Denies: diarrhea, hematemesis Past Medical History - Past Medical History Medical history: Reports: asthma, cancer, myocardial infarction - Social History Smoking Status: Former smoker Alcohol use: Reports: none Drug use: Reports: none Physical Exam Vital Signs Reviewed General: Patient is alert, oriented, and in acute distress from his epigastric pain and persistent nausea HEENT: No facial asymmetry. Head is normocephalic and atraumatic. PERRLA, EOMI. oral mucosa is dry. Trachea midline. Cardiovascular: Heart regular rate and rhythm without clicks, rubs, gallops, or murmurs. No JVD. PMI nondisplaced. Respiratory: Symmetric chest rise with poor respiratory effort. Bilateral breath sounds are clear without wheezing, crackles, or rhonchi. Abdomen: Bowel sounds present normoactive x-4 quadrants. Abdomen is soft, nondistended, mildly generalized tender, exquisite epigastric tenderness. No rebound or guarding. Musculoskeletal: Spontaneously moving all extremities. Neuro: Alert and oriented 4. Sensation light touch intact. Psych: Patient's affect is appropriate for situation. - General Limitations: no limitations General appearance: alert, in no apparent distress Course Course Narrative: Patient presents with persistent nausea and vomiting as well as breakthrough pain not improved with his home regimen. Will provide IV access, IV rehydration , IV atraumatic, and IV analgesic. He is reassessed. 1 mg Dilaudid mildly improved his symptoms. He currently takes 20 mg of oxycodone by mouth every 6 hours scheduled home. Will provide an additional 1 mg of Dilaudid. Patient has been signed out to the night team, Dr. Davila and Dr. Carbajal. Imaging is pending. Laboratory workup at this time does not show acute kidney injury. He does have hypokalemia which is expected given his history. Will recommend replenishment by the night team. Vital Signs Temperature 97.5 F L 07/25/17 17:26 Pulse Rate 103 07/25/17 17:26 Respiratory Rate 20 07/25/17 17:26 Blood Pressure 166/109 07/25/17 17:26 O2 Sat by Pulse Oximetry 98 07/25/17 17:26 Temperature 98.1 F 07/26/17 06:59 Pulse Rate 92 07/26/17 06:59 Respiratory Rate 16 07/26/17 06:59 Blood Pressure 184/104 07/26/17 06:59 O2 Sat by Pulse Oximetry 96 07/26/17 06:59 Oxygen Delivery Oxygen Delivery Room Air Medical Decision Making - Lab Data Result diagrams: 07/26/17 05:00 07/26/17 05:00 Lab Results 07/25/17 07/25/17 07/25/17 Range/Units 18:26 18:26 18:26 WBC 5.2 (4.3-11.1) K/mcL RBC 4.44 (4.19-5.50) M/mcL Hgb 13.7 (12.9-16.9) g/dL Hct 40.0 (37.5-50.1) % MCV 90.1 (83.0-100.0) fL MCH 30.9 (28.0-33.3) pg MCHC 34.3 (31.6-35.5) g/dL RDW 12.5 (11.5-14.5) % Plt Count 224 (140-400) K/mcL MPV 8.4 L (9.4-12.4) fL Immature Gran % 0.6 (0-4) % Seg Neutrophils % 81.1 % Lymphocytes % 10.0 % Monocytes % 7.7 % Eosinophils % 0.4 % Basophils % 0.2 % Neutrophils # 4.2 (1.6-8.9) K/mcL Lymphocytes # 0.5 L (0.6-4.6) K/mcL Monocytes # 0.4 (0.0-1.3) K/mcL Eosinophils # 0.0 (0.0-0.6) K/mcL Basophils # 0.0 (0.0-0.2) K/mcL Sodium 131 L (136-145) mEq/L Potassium 2.8 L (3.5-5.1) mEq/L Chloride 92 L (98-107) mEq/L Carbon Dioxide 29 (23-29) mEq/L BUN 13 (8-23) mg/dL Creatinine 0.65 L (0.70-1.30) mg/dL Est GFR ( Amer) > 60 (> 60) Est GFR (Non-Af Amer) > 60 (> 60) BUN/Creatinine Ratio 20 (6-26) Glucose 143 H (70-105) mg/dL Calculated Osmolality 275 L (280-300) Lactic Acid 1.0 (0.5-2.2) mmol/L Calcium 8.5 L (8.6-10.3) mg/dL Total Bilirubin 0.4 (0.3-1.0) mg/dL Direct Bilirubin 0.1 (0.0-0.2) mg/dL Indirect Bilirubin 0.3 (0.0-1.2) mg/dL AST 13 (13-39) Units/L ALT 10 (7-52) Units/L Alkaline Phosphatase 100 (34-104) Units/L Serum Total Protein 6.7 (6.4-8.9) g/dL Albumin 3.8 (3.5-5.7) g/dL Globulin 2.9 (2.4-3.5) g/dL Albumin/Globulin Ratio 1.3 (1.1-2.2) Lipase 10 L (11-82) Units/L Attestation Statement - Attestation Attestation: I examined this patient and my medical decision-making was reviewed with the Resident Physician. I agree with the documented findings, disposition and treatment plan as described except to the extent set forth below. See my note
--- NOTE | 2017-07-25 22:23 | Emergency Department Note ---
Disposition Clinical Impression: Abdominal pain Qualifiers: Abdominal location: right upper quadrant Qualified Code(s): R10.11 - Right upper quadrant pain Vomiting Qualifiers: Vomiting type: unspecified Vomiting Intractability: intractable Nausea presence : without nausea Qualified Code(s): R11.11 - Vomiting without nausea Disposition: Admitted As Inpatient Condition: Fair Time of Disposition: 22:30 Abdominal Pain HPI - General Chief Complaint: ED Abdominal Pain Stated Complaint: ABD PAIN Time Seen by Provider: 07/25/17 17:35 Source: patient, family Mode of arrival: ambulatory Limitations: no limitations Nursing Notes Reviewed: Yes Vital Signs Reviewed: Yes - History of Present Illness HPI Narrative: 62-year-old male presented to the emergency department with abdominal pain he does not history of esophageal cancer as a surgery where they had to do a distal resection and then sew it back to the stomach. He does take chronic medication for his abdominal pain he takes 20 mg oxycodone every 4 hours. That has not been helping with the pain. For full history and physical please refer to Dr. Maddox and Dr. De La Paz's H&P as patient was signed out to me from the day team Location: RUQ, epigastric Pain Severity: moderate Pain Scale: 10 Quality: stabbing, aching Migration to: no migration Improves with: nothing Worsens with: vomiting - Related Data Home Medications Medication Instructions Recorded Confirmed Albuterol Sulfate [Ventolin Hfa] 2 puff IH Q4H PRN 07/25/17 07/25/17 Amoxicillin/Clavulanate [Augmentin] 875 mg PO BID 07/25/17 07/25/17 Aspirin Enteric Coated [Aspirin EC] 81 mg PO DAILY 07/25/17 07/25/17 Clopidogrel [Plavix] 75 mg PO QPM 07/25/17 07/25/17 Dicyclomine [Bentyl] 20 mg PO QID PRN 07/25/17 07/25/17 Losartan Potassium [Cozaar] 50 mg PO QPM 07/25/17 07/25/17 Montelukast [Singulair] 10 mg PO QPM 07/25/17 07/25/17 Morphine Sulfate SR (12 HR) [MS 60 mg PO Q12H 07/25/17 07/25/17 Contin] Morphine Sulfate [Morphine Oral 20 mg PO Q1H PRN 07/25/17 07/25/17 Solution] Multivitamin [One Daily Essential] 1 each PO DAILY 07/25/17 07/25/17 Ondansetron [Zofran ODT] 8 mg SL TID PRN 07/25/17 07/25/17 OxyCODONE Immed Rel [Roxicodone 20 20 mg PO Q3H PRN 07/25/17 07/25/17 MG] Pantoprazole Sodium [Pantoprazole 40 mg PO BID 07/25/17 07/25/17 Sodium] Triamterene/HCTZ 37.5/25mg 1 each PO BID 07/25/17 07/25/17 [Dyazide] Verapamil HCl [Verapamil HCl] 360 mg PO QPM 07/25/17 07/25/17 Zolpidem [Ambien] 10 mg PO HS PRN 07/25/17 07/25/17 predniSONE [PredniSONE] 40 mg PO DAILY 07/25/17 07/25/17 Allergies Allergy/AdvReac Type Severity Reaction Status Date / Time Beta-Blockers Allergy Palpitation Verified 07/25/17 17:30 (Beta-Adrenergic Bloc s metoclopramide [From Reglan] Allergy Blurry Verified 07/25/17 17:30 Vision Review of Systems: 10 point review of systems done and negative unless otherwise stated in history of present illness. All systems ED: reviewed and negative except as stated. Review of Systems: As Per HPI Gastrointestinal: Reports: abdominal pain, nausea, vomiting. Denies: diarrhea, hematemesis Abdominal Pain PMH - Past Medical History Medical history: Reports: asthma, cancer, myocardial infarction Male Surgical History: Reports: herniorrhaphy, other (Distal esophageal resection with gastric pull-through) - Social History Smoking status: Former smoker Alcohol use: Reports: none Drug use: Reports: none Physical Exam - General Limitations: no limitations General appearance: alert, in no apparent distress - Head Head exam: atraumatic, normocephalic, normal inspection - Eye Eye exam: Present: normal appearance, PERRL, EOMI - ENT ENT exam: normal exam, normal oropharynx, mucous membranes moist - Neck Neck exam: Present: normal inspection, full ROM, trachea midline - Chest Chest inspection: Present: normal inspection, symmetric chest wall rise - Respiratory Respiratory exam: Present: normal lung sounds bilaterally - Cardiovascular Cardiovascular exam: Present: regular rate, normal rhythm, normal heart sounds - Abdominal Exam Abdominal exam: Present: soft, tenderness, normal bowel sounds. Absent: distention, guarding, rebound, rigidity, Iqbal's sign, Rovsing's sign, tenderness at McBurney's Point Abdominal tenderness: Present: diffuse, moderate - Extremities Exam Extremities exam: Present: normal inspection, full ROM. Absent: tenderness, pedal edema - Expanded Lower Extremity Exam Neurovascular/Tendon exam: Absent: motor deficit, sensory deficit, tendon deficit - Back Exam Back exam: Present: normal inspection, full ROM. Absent: tenderness, CVA tenderness (R), CVA tenderness (L) - Neurological Exam Neurological exam: Present: alert, oriented X3 - Skin Skin exam: Present: warm, dry, intact, normal color Course Course Narrative: 2-year-old male presented with abdominal pain he does have chronic abdominal pain. We will get CT of his abdomen results are pending. Patient was already given 2 mg Dilaudid as well as Zofran. We will give him another Dilaudid and try Phenergan for the pain and nausea. Vital Signs Temperature 97.5 F L 07/25/17 17:26 Pulse Rate 103 07/25/17 17:26 Respiratory Rate 20 07/25/17 17:26 Blood Pressure 166/109 07/25/17 17:26 O2 Sat by Pulse Oximetry 98 07/25/17 17:26 Temperature 98.7 F 07/25/17 22:38 Pulse Rate 88 07/25/17 22:38 Respiratory Rate 16 07/25/17 22:38 Blood Pressure 175/102 07/25/17 22:51 O2 Sat by Pulse Oximetry 94 07/25/17 22:38 Oxygen Delivery Oxygen Delivery Room Air Abdominal Pain - [facility] Narrative Medical decision making narrative: 62-year-old male presented to the emergency department complaining of abdominal pain he does have history of esophageal cancer has had ever section. CT of the abdomen and pelvis did not show any acute findings does have a old Haldol hernia. Patient's pain was unable to be controlled here after 4 mg Dilaudid and his nausea as well with both Zofran and Phenergan. Patient really did not have a positive Iqbal sign do not think this is gallbladder disease we did not order a right upper quadrant ultrasound. Family did agree with this plan. Overall this is his chronic pain that is having acute exacerbation. There are no signs of any acute problems. Due to this we felt that patient needed to be admitted for pain and nausea control family did agree with this plan. I spoke with Dr. Norton patient is admitted in stable condition with his pain moderately under control. the hospitalist agreed to admit the patient to observation. Patient is okay with this. The patient is admitted in stable condition. Chest X-Ray 07/25/17 17:55 IMPRESSION: No acute cardiopulmonary findings. D/ / Rachel Augustine MD / Rachel Augustine MD Interpreting Provider: Rachel Augustine MD Abdomen/Pelvis CT 07/25/17 19:06 IMPRESSION: No cause for right upper quadrant pain identified. Gallbladder ultrasound may be more sensitive. Moderate hiatal hernia. D/ / Rasheed Canales MD / Rasheed Canales MD Interpreting Provider: Rasheed Canales MD - Medical Records Medical records reviewed: Yes I reviewed the patient's medical records. - Lab Data Lab results reviewed: Yes I reviewed the patient's lab results. Result diagrams: 07/25/17 18:26 07/25/17 18:26 Lab Results 07/25/17 07/25/17 07/25/17 Range/Units 18:26 18:26 18:26 WBC 5.2 (4.3-11.1) K/mcL RBC 4.44 (4.19-5.50) M/mcL Hgb 13.7 (12.9-16.9) g/dL Hct 40.0 (37.5-50.1) % MCV 90.1 (83.0-100.0) fL MCH 30.9 (28.0-33.3) pg MCHC 34.3 (31.6-35.5) g/dL RDW 12.5 (11.5-14.5) % Plt Count 224 (140-400) K/mcL MPV 8.4 L (9.4-12.4) fL Immature Gran % 0.6 (0-4) % Seg Neutrophils % 81.1 % Lymphocytes % 10.0 % Monocytes % 7.7 % Eosinophils % 0.4 % Basophils % 0.2 % Neutrophils # 4.2 (1.6-8.9) K/mcL Lymphocytes # 0.5 L (0.6-4.6) K/mcL Monocytes # 0.4 (0.0-1.3) K/mcL Eosinophils # 0.0 (0.0-0.6) K/mcL Basophils # 0.0 (0.0-0.2) K/mcL Sodium 131 L (136-145) mEq/L Potassium 2.8 L (3.5-5.1) mEq/L Chloride 92 L (98-107) mEq/L Carbon Dioxide 29 (23-29) mEq/L BUN 13 (8-23) mg/dL Creatinine 0.65 L (0.70-1.30) mg/dL Est GFR ( Amer) > 60 (> 60) Est GFR (Non-Af Amer) > 60 (> 60) BUN/Creatinine Ratio 20 (6-26) Glucose 143 H (70-105) mg/dL Calculated Osmolality 275 L (280-300) Lactic Acid 1.0 (0.5-2.2) mmol/L Calcium 8.5 L (8.6-10.3) mg/dL Total Bilirubin 0.4 (0.3-1.0) mg/dL Direct Bilirubin 0.1 (0.0-0.2) mg/dL Indirect Bilirubin 0.3 (0.0-1.2) mg/dL AST 13 (13-39) Units/L ALT 10 (7-52) Units/L Alkaline Phosphatase 100 (34-104) Units/L Serum Total Protein 6.7 (6.4-8.9) g/dL Albumin 3.8 (3.5-5.7) g/dL Globulin 2.9 (2.4-3.5) g/dL Albumin/Globulin Ratio 1.3 (1.1-2.2) Lipase 10 L (11-82) Units/L - Radiology Data Radiology results reviewed: Yes I reviewed the patient's radiology results. Attestation Statement - Attestation Attestation: I, Jah Carbajal MD, personally evaluated this patient and discussed their management with the resident physician. I reviewed the resident's note and agree with the documented findings, medical decision making, and plan of care. This patient was signed out at shift change from Dr. Maddox and Dr. De La Paz. Please refer to their notes for complete details of the history and physical examination. Patient presented with epigastric and right-sided abdominal pain with nausea and vomiting. Patient has had esophageal cancer and this is a chronic intermittent problem. At shift change she is awaiting labs and a CT of the abdomen and pelvis. On examination patient is a well-developed well-nourished male in no acute distress. He is alert and oriented 3. There is no cyanosis or diaphoresis. Breath sounds are clear and equal bilaterally. Heart regular rate and rhythm. Abdomen is soft with decreased bowel sounds. Mild epigastric and right mid and lower abdominal tenderness. Labs reviewed. No acute abnormality on CT. Patient had repeated doses of pain medication and nausea medication in the emergency department with persistent pain and nausea. The hospitalist, Dr. Norton, was consulted and accepted admission of the patient.
[2017-07-26] MEDS ORDERED: *HR* Morphine 2 MG/ML SYRINGE IVP PRN (00:32)
[2017-07-26] MEDS ORDERED: Ondansetron 4 MG/2 ML VIAL IVP PRN (00:44)
[2017-07-26] MEDS ORDERED: Naloxone 0.4 MG/ML INJ IVP PRN (00:44)
[2017-07-26] MEDS ORDERED: Acetaminophen 325 MG TABLET PO PRN (00:44)
[2017-07-26] MEDS ORDERED: Ipratropium/Albuterol Neb 3 ML IH PRN (00:57)
[2017-07-26] MEDS: 0.9 % Sodium Chloride 1,000 ML IVC SCH ×2 (02:11→12:06)
[2017-07-26] MEDS ORDERED: *HR* LORazepam 2 MG/ML VIAL IVP PRN ×3 (02:22)
[2017-07-26] MEDS: Ipratropium/Albuterol Neb 3 ML IH SCH ×4 (03:30→22:18)
[2017-07-26] MEDS: *HR* Morphine 2 MG/ML SYRINGE IVP PRN ×5 (03:52→23:20)
[2017-07-26] MEDS ORDERED: Potassium Chloride 40 MEQ, Lidocaine 1% 2 ML in D5% in Water 500 ML IVPB ONE (04:18)
[2017-07-26] MEDS: *HR* HYDROmorphone (PF) 1 MG/ML SYRINGE IVP PRN ×3 (04:44→20:15)
[2017-07-26] MEDS: *HR* Heparin 5,000 UNIT/ML VIAL SQ SCH ×2 (04:44→17:11)
--- NOTE | 2017-07-26 04:49 | Internal Med History&Physical ---
Date of Encounter: 07/25/17 Time of Encounter: 23:00 Assessment and Plan (1) Acute gastritis Current visit: Yes Status: Acute Pt has abd pain with nausea and vomiting, CT abd unremarkable, consider acute gastritis. Etiology probably viral as pt has runny nose recently. - Place pt on clear liquid diet, IVF. - Symptomatic treatment with zofran, phenergan and pain medication. - check flu test. Qualifiers: Gastritis type: other gastritis Gastritis bleeding: without bleeding Qualified Code(s): K29.00 - Acute gastritis without bleeding (2) COPD exacerbation Current visit: Yes Status: Acute Pt has hx of COPD, with increased wheezing and SOB, consider mild COPD exacerbation. - Cont po augmentin and prednisone. - Duoneb treatment (3) Esophageal cancer Current visit: Yes Status: Acute Pt had Sx. F/U as outpatient. Qualifiers: Malignant neoplasm of esophagus location: unspecified location Qualified Code(s): C15.9 - Malignant neoplasm of esophagus, unspecified (4) DVT prophylaxis Current visit: Yes Status: Acute Heparin SC (5) Abdominal pain Current visit: Yes Status: Acute CT abd negative, consider acute gastritis. However, pt c/o pain on RUQ, will order US liver to r/o liver/gall bladder disease. Qualifiers: Abdominal location: right upper quadrant Qualified Code(s): R10.11 - Right upper quadrant pain Internal Medicine - H&P: HPI Chief complaint: Abdomenal pain Admitted From: Home Plans for Post Hospital Care: Home History of present illness: Mr. Flood is a 62 year old male with Hx of esophageal cancer s/p surgery, COPD, present to ER for Abd pain with nausea and vomiting for 2 days. Pain located on RUQ and epigastric area, stubbing, 10/10, constant. Pt has nausea, worsening on movement. He has vomitting, which was stomache content, no blood in it. Pt denies fever, diarrhea, or chest pain. He has runny nose and mild SOB , his PCP prescribed augmentin and prednisone 2 days ago. Past Med Surg Social Fam HX - Past Medical History Medical history: asthma, cancer, myocardial infarction - Social History Smoking Status: Former smoker Alcohol use: none Drug use: none - Family History Mother Living Status: Age at : 68 Cause of : Cancer Hx Family Cancer: Yes (Liver) Hx Family Endocrine Disorder: Yes (dm) Father Living Status: Age at : 56 Hx Family Cardiac Disorders: Yes (heart disease) Hx Family Respiratory Disorders: Yes (copd) Hx Family Endocrine Disorder: Yes (dm) Internal Medicine - H&P: Meds Albuterol Sulfate [Ventolin Hfa] 2 puff IH Q4H PRN 07/25/17 [History] Amoxicillin/Clavulanate [Augmentin] 875 mg PO BID 07/25/17 [History] Aspirin Enteric Coated [Aspirin EC] 81 mg PO DAILY 07/25/17 [History] Clopidogrel [Plavix] 75 mg PO QPM 07/25/17 [History] Dicyclomine [Bentyl] 20 mg PO QID PRN 07/25/17 [History] Losartan Potassium [Cozaar] 50 mg PO QPM 07/25/17 [History] Montelukast [Singulair] 10 mg PO QPM 07/25/17 [History] Morphine Sulfate SR (12 HR) [MS Contin] 60 mg PO Q12H 07/25/17 [History] Morphine Sulfate [Morphine Oral Solution] 20 mg PO Q1H PRN 07/25/17 [History] Multivitamin [One Daily Essential] 1 each PO DAILY 07/25/17 [History] Ondansetron [Zofran ODT] 8 mg SL TID PRN 07/25/17 [History] OxyCODONE Immed Rel [Roxicodone 20 MG] 20 mg PO Q3H PRN 07/25/17 [History] Pantoprazole Sodium [Pantoprazole Sodium] 40 mg PO BID 07/25/17 [History] Triamterene/HCTZ 37.5/25mg [Dyazide] 1 each PO BID 07/25/17 [History] Verapamil HCl [Verapamil HCl] 360 mg PO QPM 07/25/17 [History] Zolpidem [Ambien] 10 mg PO HS PRN 07/25/17 [History] predniSONE [PredniSONE] 40 mg PO DAILY 07/25/17 [History] 3 Allergy/AdvReac Type Severity Reaction Status Date / Time Beta-Blockers Allergy Palpitation Verified 07/25/17 17:30 (Beta-Adrenergic Bloc s metoclopramide [From Reglan] Allergy Blurry Verified 07/25/17 17:30 Vision All Systems PM: A 10-system review of systems was performed and is negative for pertinent findings except as documented above in the HPI. - Constitutional Vitals: Temp Pulse Resp BP Pulse Ox 97.6 F 85 18 160/92 94 07/26/17 02:50 07/26/17 02:50 07/26/17 02:50 07/26/17 02:50 07/26/17 02:50 General appearance: Present: A&O X 3, no acute distress, answers questions appropriately - Head Head exam: Present: atraumatic, normocephalic - Eye Eye exam: Present: PERRL, conjuntiva pink, sclera anicteric Pupils: Present: PERRL - Neck Neck exam general surgery: Present: supple, trachea midline. Absent: lymphadenopathy - Respiratory Respiratory exam: Present: CTAB, rhonchi (B/L), wheezes (B/L). Absent: accessory muscle use, rales - Cardiovascular Cardiovascular exam: Present: RRR, +S1, +S2. Absent: diastolic murmur, gallop, rubs, systolic murmur - GI/Abdominal GI/Abdominal exam: Present: normal bowel sounds, soft, tenderness (On RUQ and epigastric area, Iqbal's sign negative.), no peritoneal signs. Absent: distended - Extremities Exam Extremities exam: Present: warm, radial pulses palpable and symmetrical. Absent : calf tenderness, cyanotic, pedal edema - Neurological Exam Neurological exam: Present: CN II-XII intact, oriented X3, no focal deficits. Absent: pronater drift, facial droop, speech deficit - Skin Skin exam: Present: dry, intact Internal Med - H&P Results - Labs CBC & Chem 7: 07/25/17 18:26 07/25/17 18:26
[2017-07-26 05:06] LABS: Basophils % 0.2 %; Eosinophils % 0.2 %; Hematocrit 39.6 % (37.5-50.1); Hemoglobin 13.5 g/dL (12.9-16.9); Immature Granulocytes % 0.2 % (0-4); Lymphocytes # 1.1 K/mcL (0.6-4.6); Lymphocytes % 24.4 %; Mean Corpuscular HGB Conc 34.1 g/dL (31.6-35.5); Mean Corpuscular Hemoglobin 30.8 pg (28.0-33.3); Mean Corpuscular Volume 90.4 fL (83.0-100.0); Mean Platelet Volume 8.4 fL (9.4-12.4); Monocytes # 0.7 K/mcL (0.0-1.3); Neutrophils # 2.6 K/mcL (1.6-8.9); Platelet Count 192 K/mcL (140-400); Red Blood Count 4.38 M/mcL (4.19-5.50); Red Cell Distribution Width 12.5 % (11.5-14.5)
[2017-07-26 05:23] LABS: BUN/Creatinine Ratio 18 (6-26); Blood Urea Nitrogen 12 mg/dL (8-23); Calcium 8.3 mg/dL (8.6-10.3); Carbon Dioxide 29 mEq/L (23-29); Chloride 95 mEq/L (98-107); Glucose 101 mg/dL (70-105); Osmolality,Calculated 278 (280-300); Potassium 2.6 mEq/L (3.5-5.1); Sodium 134 mEq/L (136-145); eGFR For African Americans > 60 (> 60); eGFR For Non-African Americans > 60 (> 60)
[2017-07-26] MEDS: *HR* Promethazine 25 MG/ML VIAL IVP PRN ×2 (07:34→14:36)
[2017-07-26] MEDS: Multivit/Ca/Min/Fe/FA 1 TAB TABLET PO SCH (09:07)
[2017-07-26] MEDS: Aspirin Enteric Coated 81 MG Tablet PO SCH (09:07)
[2017-07-26] MEDS: predniSONE 20 MG TABLET PO SCH (09:07)
--- NOTE | 2017-07-26 15:58 | Internal Med Progress Note ---
Date of Encounter: 07/26/17 Time of Encounter: 11:15 - Assessment and plan (1) Abdominal pain Current Visit: Yes Status: Acute Assessment and plan: Patient presents to the emergency department with complaint of nausea vomiting and abdominal pain for 2 days. Pain is located right upper quadrant epigastric area, he describes it as stabbing, constant, 10/10. History of esophageal cancer and is a patient of palliative team at [facility] for pain management. CT abdomen and pelvis identified no cause right upper quadrant pain. Mild hiatal hernia was noted. Right upper quadrant ultrasound was unremarkable. Abdomen is soft with bowel Sounds present. There is no leukocytosis or fever. Patient was writhing in pain on the pad and tearful. He reports that pain medicine we were providing is not giving him any relief. I spoke with Dr. Mishra who assisted in calculating morphine equivalents. Patient is 280 oral morphine equivalent daily at home. We have added 50 mEq and no patch every 72 hours as well as 10 mg IV morphine every 2 hours. We will continue to monitor patient labs, vitals, and pain level. Qualifiers: Abdominal location: right upper quadrant Qualified Code(s): R10.11 - Right upper quadrant pain (2) Vomiting Current Visit: Yes Status: Acute Assessment and plan: Plan as above. Most likely viral gastritis in etiology. Continue Zofran 4 mg every 4 hours when necessary. Monitor labs, stat repeat potassium has been ordered. We will continue to monitor and supplement as needed. Qualifiers: Vomiting type: unspecified Vomiting Intractability: intractable Nausea presence: without nausea Qualified Code(s): R11.11 - Vomiting without nausea (3) Acute gastritis Current Visit: Yes Status: Acute Assessment and plan: Abdominal pain, nausea, vomiting. Consider viral etiology since patient has had rhinorrhea and sore throat recently. CAT scan of abdomen and gallbladder ultrasound were unremarkable. Treat abdominal pain as stated above, anti-emetics as needed. IV fluid hydration Advance diet as tolerated Qualifiers: Gastritis type: other gastritis Gastritis bleeding: without bleeding Qualified Code(s): K29.00 - Acute gastritis without bleeding (4) COPD exacerbation Current Visit: Yes Status: Chronic Assessment and plan: mild exacerbation. Faint wheezing heard in posterior bases, patient reports productive cough. Patient is already on Augmentin and prednisone from home. Continue DuoNeb treatments (5) Esophageal cancer Current Visit: Yes Status: Acute Assessment and plan: Oncology at [facility]. Qualifiers: Malignant neoplasm of esophagus location: unspecified location Qualified Code(s): C15.9 - Malignant neoplasm of esophagus, unspecified (6) DVT prophylaxis Current Visit: Yes Status: Acute Assessment and plan: Heparin subcutaneous twice daily. (7) RUQ abdominal pain Current Visit: Yes Status: Acute Assessment and plan: Plan as above. - Time Spent With Patient less than 15 minutes - Subjective Interval history: Patient was seen and assessed at bedside at 11:15 AM. Patient was writhing in pain on the bed, he was in pain and tearful. He reports upper midabdomen pain and reports that the medication we are giving him or not sufficient. His abdomen is soft and nontender bowel sounds present. He reports that he is nauseated and is unable to keep any food or fluid down at this time. He reports that Zofran works well for him, I have increased the frequency. - Constitutional Vitals: Temp Pulse Resp BP Pulse Ox 98.2 F 83 16 188/100 94 07/26/17 10:45 07/26/17 10:45 07/26/17 10:45 07/26/17 10:45 07/26/17 10:45 General appearance: Present: cooperative, A&O X 3, pleasant, severe distress, answers questions appropriately - Head Head exam: Present: atraumatic, normal inspection, normocephalic - Eye Eye exam: Present: normal appearance, conjuntiva pink, sclera anicteric - Neck Neck exam general surgery: Present: supple, trachea midline. Absent: lymphadenopathy - Respiratory Respiratory exam: Present: CTAB. Absent: accessory muscle use, chest wall tenderness, rales, respiratory distress, rhonchi, wheezes - Cardiovascular Cardiovascular exam: Present: RRR, +S1, +S2. Absent: diastolic murmur, gallop, rubs, systolic murmur - GI/Abdominal GI/Abdominal exam: Present: normal bowel sounds, soft. Absent: distended, hepatomegaly, tenderness - Extremities Exam Extremities exam: Present: normal capillary refill, normal inspection, warm, radial pulses palpable and symmetrical. Absent: calf tenderness, cyanotic, pedal edema, tenderness - Neurological Exam Neurological exam: Present: alert, oriented X3, no focal deficits. Absent: facial droop, speech deficit - Skin Skin exam: Present: dry, intact, normal color, warm. Absent: rash Internal Medicine: Result - Labs CBC & Chem 7: 07/26/17 05:00 07/26/17 05:00 Labs: Short CBC 07/26/17 Range/Units 05:00 WBC 4.4 (4.3-11.1) K/mcL Hgb 13.5 (12.9-16.9) g/dL Hct 39.6 (37.5-50.1) % Plt Count 192 (140-400) K/mcL Neutrophils # 2.6 (1.6-8.9) K/mcL BMP 07/26/17 05:00 Sodium 134 L Potassium 2.6 L Chloride 95 L Carbon Dioxide 29 BUN 12 Creatinine 0.68 L Glucose 101 Calcium 8.3 L - Impressions Impressions Abdomen Ultrasound 07/26/17 08:00 IMPRESSION: Unremarkable right upper quadrant ultrasound. No cholelithiasis or definite findings to suggest acute cholecystitis. D/ / Raul Romero / Raul Romero Interpreting Provider: Raul Romero Consult Discharge Plan - Plan Referrals: Quirino Ramos DO [Primary Care Provider] -
[2017-07-26] MEDS ORDERED: *HR* FentaNYL PATCH 50 MCG PATCH TD SCH (16:00)
[2017-07-26] MEDS: Ondansetron 4 MG/2 ML VIAL IVP SCH ×2 (17:10→23:20)
[2017-07-27] MEDS: *HR* Morphine 2 MG/ML SYRINGE IVP PRN ×3 (03:49→12:50)
[2017-07-27] MEDS: Ipratropium/Albuterol Neb 3 ML IH SCH ×4 (04:38→22:14)
[2017-07-27] MEDS: *HR* Heparin 5,000 UNIT/ML VIAL SQ SCH ×2 (04:59→21:40)
[2017-07-27] MEDS: Ondansetron 4 MG/2 ML VIAL IVP SCH ×4 (04:59→23:49)
[2017-07-27] MEDS: predniSONE 20 MG TABLET PO SCH (09:01)
[2017-07-27] MEDS: Multivit/Ca/Min/Fe/FA 1 TAB TABLET PO SCH (09:01)
[2017-07-27] MEDS: Aspirin Enteric Coated 81 MG Tablet PO SCH (09:01)
--- NOTE | 2017-07-27 10:18 | Electrocardiograph Report ---
[place] [id number] Test Date: 2017-07-26 Pat Name: Robert Flood Department: 113 Room: 3B Gender: M Reimbursement Rep: : 1955 Requested By: Beckie Mcneal Order Number: [id number] Reading MD: Barrington Ahmadi DO Measurements Intervals [place] Rate: 78 P: 32 SC: 143 QRS: 43 QRSD: 101 T: 25 QT: 401 QTc: 434 Interpretive Statements SINUS RHYTHM NONSPECIFIC T-WAVE ABNORMALITY Electronically Signed On 07-27-2017 10:16:12 EST by Barrington Ahmadi DO
--- NOTE | 2017-07-27 16:44 | Internal Med Progress Note ---
Date of Encounter: 07/27/17 Time of Encounter: 12:30 - Assessment and plan (1) Abdominal pain Current Visit: Yes Status: Acute Assessment and plan: presented with nausea vomiting and abdominal pain for 2 days. History of esophageal cancer and follows with [facility] pain management team. ABD CT unremarkable. Pain uncontrolled on arrival and required IV pain medicine. Resume home pain medications as he is tolerating regular diet. Continue Duragesic patch. Patient advised to use PRN IV pain medication as last resort; attempting pain control without IV pain medicine and anticipation of discharge Qualifiers: Abdominal location: right upper quadrant Qualified Code(s): R10.11 - Right upper quadrant pain (2) Acute gastritis Current Visit: Yes Status: Acute Assessment and plan: possible; presented with abdominal pain, nausea, vomiting. Consider viral etiology since patient has had rhinorrhea and sore throat recently. CT scan of abdomen and gallbladder ultrasound were unremarkable. Treat abdominal pain as stated above, anti-emetics as needed. IV fluid hydration. Advance diet as tolerated. Cont PPI Qualifiers: Gastritis type: other gastritis Gastritis bleeding: without bleeding Qualified Code(s): K29.00 - Acute gastritis without bleeding (3) COPD exacerbation Current Visit: Yes Status: Chronic Assessment and plan: mild exacerbation with faint wheezing, productive cough. Cont Augmentin and prednisone from home. Continue DuoNeb treatments (4) Esophageal cancer Current Visit: Yes Status: Acute Assessment and plan: per hx. Follows with Oncology at [facility]. Qualifiers: Malignant neoplasm of esophagus location: unspecified location Qualified Code(s): C15.9 - Malignant neoplasm of esophagus, unspecified (5) DVT prophylaxis Current Visit: Yes Status: Acute Assessment and plan: Heparin - Subjective Interval history: Seen and examined at bedside. He is still complaining of abdominal pain but reports significant improvement since arrival. Tolerating clear liquid and would like to advance diet. He is agreeable to stay overnight for continued monitoring and pain control. Advised not to use IV pain medicine if possible in an attempt to ascertain pain control on oral agents only. No further nausea or vomiting. - Constitutional Vitals: Temp Pulse Resp BP Pulse Ox 97.9 F 91 18 184/110 95 07/27/17 15:48 07/27/17 15:48 07/27/17 15:48 07/27/17 15:48 07/27/17 15:48 General appearance: Present: cooperative, A&O X 3, pleasant, severe distress, answers questions appropriately - Head Head exam: Present: atraumatic, normocephalic - Eye Eye exam: Present: PERRL, conjuntiva pink, sclera anicteric Pupils: Present: PERRL - Neck Neck exam general surgery: Present: supple, trachea midline. Absent: lymphadenopathy - Respiratory Respiratory exam: Present: CTAB. Absent: accessory muscle use, rales, rhonchi, wheezes - Cardiovascular Cardiovascular exam: Present: RRR, +S1, +S2. Absent: diastolic murmur, gallop, rubs, systolic murmur - GI/Abdominal GI/Abdominal exam: Present: normal bowel sounds, soft, no peritoneal signs. Absent: distended, tenderness - Extremities Exam Extremities exam: Present: warm, radial pulses palpable and symmetrical. Absent : calf tenderness, cyanotic, pedal edema - Neurological Exam Neurological exam: Present: CN II-XII intact, oriented X3, no focal deficits. Absent: pronater drift, facial droop, speech deficit - Skin Skin exam: Present: dry, intact Internal Medicine: Result - Labs CBC & Chem 7: 07/26/17 05:00 07/26/17 16:39 Labs: BMP 07/26/17 16:39 Potassium 3.5 D Consult Discharge Plan - Plan Referrals: Quirino Ramos DO [Primary Care Provider] -
[2017-07-27] MEDS ORDERED: *HR* Morphine Sulfate SR (12 HR) 60 MG TABLET.ER PO SCH (16:45)
[2017-07-27] MEDS: *HR* OxyCODONE Immed Rel 5 MG TABLET PO PRN ×2 (18:21→23:49)
[2017-07-27] MEDS: *HR* Morphine Sulfate SR (12 HR) 60 MG TABLET.ER PO SCH (20:02)
[2017-07-28] MEDS: Ipratropium/Albuterol Neb 3 ML IH SCH ×2 (03:35→10:01)
[2017-07-28] MEDS: Ondansetron 4 MG/2 ML VIAL IVP SCH (04:29)
[2017-07-28] MEDS: *HR* OxyCODONE Immed Rel 5 MG TABLET PO PRN (04:42)
[2017-07-28 08:21] VITALS: BP 115/76
--- NOTE | 2017-07-28 08:51 | Discharge Summary ---
Date of Encounter: 07/28/17 Time of Encounter: 08:40 - Discharge Diagnosis (1) Abdominal pain Priority: Primary Status: Acute Comments: Pt states that his abdominal pain is back to his baseline 4-5/10 and that he is feeling better. He is tolerating food and fluid well. States that he feels he is ready for discharge. Qualifiers: Abdominal location: right upper quadrant Qualified Code(s): R10.11 - Right upper quadrant pain (2) Vomiting Priority: Secondary Status: Resolved Comments: Resolved. Qualifiers: Vomiting type: unspecified Vomiting Intractability: intractable Nausea presence: without nausea Qualified Code(s): R11.11 - Vomiting without nausea (3) Acute gastritis Priority: Secondary Status: Acute Comments: Presumed. Presented with abdominal pain, nausea, vomiting for 2 days prior to admission. Consider viral etiology since patient has had rhinorrhea and sore throat recently. CT scan of abdomen and gallbladder ultrasound were negative. Treated with IV antibiotics and IV antiemetics, advanced diet slowly. Continue PPI at home. Qualifiers: Gastritis type: other gastritis Gastritis bleeding: without bleeding Qualified Code(s): K29.00 - Acute gastritis without bleeding (4) COPD exacerbation Priority: Secondary Status: Chronic Comments: Faint wheezing heard in posterior bases. Continue po Augmentin and prednisone from home. Duonebs at home. Mild exacerbaton of chronic. (5) Esophageal cancer Priority: Secondary Status: Chronic Comments: Pt follows with oncology and palliative for pain control at [facility]. Qualifiers: Malignant neoplasm of esophagus location: unspecified location Qualified Code(s): C15.9 - Malignant neoplasm of esophagus, unspecified (6) DVT prophylaxis Priority: Secondary Status: Acute Comments: Heparin SQ (7) RUQ abdominal pain Priority: Secondary Status: Resolved Comments: REsolved. Imaging negative. Symptoms have resolved. - Discharge Medications Home Medications: Albuterol Sulfate [Ventolin Hfa] 2 puff IH Q4H PRN 07/25/17 [History] Amoxicillin/Clavulanate [Augmentin] 875 mg PO BID 07/25/17 [History] Aspirin Enteric Coated [Aspirin EC] 81 mg PO DAILY 07/25/17 [History] Clopidogrel [Plavix] 75 mg PO QPM 07/25/17 [History] Dicyclomine [Bentyl] 20 mg PO QID PRN 07/25/17 [History] Losartan Potassium [Cozaar] 50 mg PO QPM 07/25/17 [History] Montelukast [Singulair] 10 mg PO QPM 07/25/17 [History] Morphine Sulfate SR (12 HR) [MS Contin] 60 mg PO Q12H 07/25/17 [History] Morphine Sulfate [Morphine Oral Solution] 20 mg PO Q1H PRN 07/25/17 [History] Multivitamin [One Daily Essential] 1 each PO DAILY 07/25/17 [History] Ondansetron [Zofran ODT] 8 mg SL TID PRN 07/25/17 [History] OxyCODONE Immed Rel [Roxicodone 20 MG] 20 mg PO Q3H PRN 07/25/17 [History] Pantoprazole Sodium 40 mg PO BID 07/25/17 [History] Triamterene/HCTZ 37.5/25mg [Dyazide] 1 each PO BID 07/25/17 [History] Verapamil HCl 360 mg PO QPM 07/25/17 [History] Zolpidem [Ambien] 10 mg PO HS PRN 07/25/17 [History] predniSONE [PredniSONE] 40 mg PO DAILY 07/25/17 [History] Docusate [Colace] 200 mg PO DAILY capsule 07/28/17 [Rx] Polyethylene Glycol 3350 [MiraLAX] 17 gm PO DAILY powd.pack 07/28/17 [Rx] Allergies/Adverse Reactions: 3 Allergy/AdvReac Type Severity Reaction Status Date / Time Beta-Blockers Allergy Palpitation Verified 07/25/17 17:30 (Beta-Adrenergic Bloc s metoclopramide [From Reglan] Allergy Blurry Verified 07/25/17 17:30 Vision Procedures/tests Complete & Pending: Procedures Performed prior 72 hours Category Date Time Status US abdomen limited [US] Routine Exams 07/26/17 08:00 Completed EKG [ECG 12 lead ECG] [ECG] Stat Y 07/25/17 23:52 Completed Date of admission: 07/25/17 22:20 Primary care physician: Prerna Dumont Discharging clinician: Toña Faulkner Anticipated date of discharge: 07/28/17 - Patient Status Disposition: Home, Self-Care Condition: Good Functional capacity at discharge: uses cane/walker Overall status at discharge: patient is back to baseline - Discharge Instructions Follow Up With: Quirino Ramos DO [Primary Care Provider] - Additional Instructions: Please follow up with your PCP in the next week to 10 days for a recheck. Follow up with oncology as scheduled. Return to the ER as needed for any other problems or concerns or if your symptoms return or worsen. Resume your normal home medications, diet, and activity as tolerated. - Diet and Activity Activity: increase activity as tolerated Diet: advance to your usual diet Hospital course: Mr. Flood is a 62 year old male with past medical history of esophageal cancer, COPD. Patient follows at [facility] for palliative pain control, and oncology. He presented to the emergency room with nausea and vomiting and abdominal pain for 2 days prior to admission. Imaging was negative. Diagnosis likely gastritis. He was treated with IV fluids, IV pain medication, IV antibiotics. He was mildly hyponatremic, resolved with IV fluids. Vital signs remained stable. All other labs were within normal limits. Patient denies nausea and states that abdominal pain has returned to his normal baseline 4-5/ 10. He has been able to tolerate by mouth intake and states that he is ready to go home. Patient is for discharge. - Time Spent with Patient Total time spent providing and/or coordinating discharge services: Less than 30 minutes - Constitutional Vitals: Temp Pulse Resp BP Pulse Ox 98.0 F 85 18 115/76 94 07/28/17 08:16 07/28/17 08:16 07/28/17 08:16 07/28/17 08:16 07/28/17 08:16 General appearance: Present: cooperative, A&O X 3, pleasant, severe distress, answers questions appropriately - Head Head exam: Present: atraumatic, normal inspection, normocephalic - Eye Eye exam: Present: normal appearance, conjuntiva pink, sclera anicteric - Neck Neck exam general surgery: Present: normal inspection, supple, trachea midline. Absent: lymphadenopathy, tenderness - Respiratory Respiratory exam: Present: CTAB. Absent: accessory muscle use, chest wall tenderness, rales, rhonchi, wheezes - Cardiovascular Cardiovascular exam: Present: RRR, +S1, +S2. Absent: diastolic murmur, gallop, irregular rhythm, rubs, systolic murmur - GI/Abdominal GI/Abdominal exam: Present: normal bowel sounds, soft, no peritoneal signs. Absent: distended, hepatomegaly, tenderness - Extremities Exam Extremities exam: Present: normal capillary refill, warm, radial pulses palpable and symmetrical. Absent: calf tenderness, cyanotic, pedal edema, tenderness - Neurological Exam Neurological exam: Present: alert, oriented X3, no focal deficits. Absent: facial droop, speech deficit - Skin Skin exam: Present: dry, intact, normal color, warm. Absent: rash
[2017-07-28] MEDS: Aspirin Enteric Coated 81 MG Tablet PO SCH (09:22)
[2017-07-28] MEDS: *HR* Morphine Sulfate SR (12 HR) 60 MG TABLET.ER PO SCH (09:22)
[2017-07-28] MEDS: predniSONE 20 MG TABLET PO SCH (09:22)
[2017-07-28] MEDS: Multivit/Ca/Min/Fe/FA 1 TAB TABLET PO SCH (09:22)
[2017-07-28] MEDS: *HR* Heparin 5,000 UNIT/ML VIAL SQ SCH (09:23)
== END 2017-07-28 11:30 | disposition home or self-care (01) ==
LOC: 3BNU 17:25 → EMEROO 17:25 → MERGE 22:20 → 3BNU 22:31
PROVIDERS: ADMIT Registered Nurse; ATTEND Registered Nurse

== ENCOUNTER 2018-12-06 11:36 | Observation (INO) ==
[2018-12-06] MEDS ORDERED: 0.9 % Sodium Chloride 1,000 ML IVC ONE (11:48)
[2018-12-06] MEDS ORDERED: Pantoprazole 40 MG VIAL IVP ONE (11:48)
[2018-12-06] MEDS ORDERED: *HR* FentaNYL (PF) 100 MCG/2 ML VIAL IVP ONE ×2 (11:49→14:29)
[2018-12-06] MEDS ORDERED: Haloperidol Lactate 5 MG/ML VIAL IVP ONE (11:50)
[2018-12-06] MEDS ORDERED: Isovue-370 500 ML BOTTLE IVP ONE (11:50)
--- NOTE | 2018-12-06 12:09 | Emergency Department Note ---
Disposition Clinical Impression: History of esophagectomy Abdominal pain Qualifiers: Abdominal location: epigastric Qualified Code(s): R10.13 - Epigastric pain Nausea and vomiting Qualifiers: Vomiting type: unspecified Vomiting Intractability: unspecified Qualified Code(s): R11.2 - Nausea with vomiting, unspecified Disposition: Admitted As Inpatient Condition: Fair Referrals: Quirino Ramos DO [Primary Care Provider] - Forms: ED Satisfaction Letter, Work/School Release Time of Disposition: 15:00 General Adult HPI - General Chief complaint: ED Abdominal Pain Stated complaint: Vomiting Esophgeal Pain Time Seen by Provider: 12/06/18 11:40 Source: patient Mode of arrival: ambulatory Limitations: no limitations Nursing Notes Reviewed: Yes Vital Signs Reviewed: Yes - History of Present Illness HPI Narrative: 63-year-old male with a history of bleeding disorder, CAD, esophagectomy 4 years ago presents for evaluation of vomiting esophageal spasms. Patient states this occurred over the past 24 hours. Notes midepigastric abdominal discomfort. Note several episodes of nonbloody nonbilious emesis. Patient states she has not been able to keep his liquid morphine down. Patient denies any dyspnea. Patient states he is on Plavix. Patient typically managed at the [facility]. Family states that this usually occurs fairly frequently if he does not get his pain medicines down. Pain Scale: 10 - Related Data Home Medications Medication Instructions Recorded Confirmed Albuterol Sulfate [Ventolin Hfa] 2 puff IH Q4H PRN 07/14/15 12/23/16 Aspirin [Adult Low Dose Aspirin EC] 81 mg PO DAILY 07/14/15 12/23/16 Clopidogrel [Plavix] 75 mg PO DAILY 07/14/15 12/23/16 Losartan Potassium [Cozaar] 50 mg PO DAILY 07/14/15 12/23/16 Montelukast [Singulair] 10 mg PO DAILY 07/14/15 12/23/16 Morphine Sulfate SR (12 HR) [MS 60 mg PO Q12HR 07/14/15 12/23/16 Contin] Multivitamin [Multi-Day Vitamins] 1 tab PO DAILY 07/14/15 12/23/16 Pantoprazole Sodium [Protonix] 40 mg PO BID 07/14/15 12/23/16 Triamterene/HCTZ 37.5/25mg 1 tab PO BID 07/14/15 12/23/16 [Dyazide] Verapamil ER (24 HR) [Calan SR] 360 mg PO QAM 07/14/15 12/23/16 OxyCODONE Immed Rel [Roxicodone 20 20 mg PO Q3H PRN 10/31/16 12/23/16 MG] Venlafaxine [Effexor] 37.5 mg PO BID 10/31/16 12/23/16 Dicyclomine [Bentyl] 20 mg PO Q6H PRN 12/23/16 12/23/16 Albuterol Sulfate [Ventolin Hfa] 2 puff IH Q4H PRN 07/25/17 07/25/17 Amoxicillin/Clavulanate [Augmentin] 875 mg PO BID 07/25/17 07/25/17 Aspirin Enteric Coated [Aspirin EC] 81 mg PO DAILY 07/25/17 07/25/17 Clopidogrel [Plavix] 75 mg PO QPM 07/25/17 07/25/17 Dicyclomine [Bentyl] 20 mg PO QID PRN 07/25/17 07/25/17 Losartan Potassium [Cozaar] 50 mg PO QPM 07/25/17 07/25/17 Montelukast [Singulair] 10 mg PO QPM 07/25/17 07/25/17 Morphine Sulfate SR (12 HR) [MS 60 mg PO Q12H 07/25/17 07/25/17 Contin] Morphine Sulfate [Morphine Oral 20 mg PO Q1H PRN 07/25/17 07/25/17 Solution] Multivitamin [One Daily Essential] 1 each PO DAILY 07/25/17 07/25/17 Ondansetron [Zofran ODT] 8 mg SL TID PRN 07/25/17 07/25/17 OxyCODONE Immed Rel [Roxicodone 20 20 mg PO Q3H PRN 07/25/17 07/25/17 MG] Pantoprazole Sodium 40 mg PO BID 07/25/17 07/25/17 Triamterene/HCTZ 37.5/25mg 1 each PO BID 07/25/17 07/25/17 [Dyazide] Verapamil HCl 360 mg PO QPM 07/25/17 07/25/17 Zolpidem [Ambien] 10 mg PO HS PRN 07/25/17 07/25/17 predniSONE [PredniSONE] 40 mg PO DAILY 07/25/17 07/25/17 Previous Rx's Medication Instructions Recorded Docusate [Colace] 200 mg PO DAILY capsule 07/28/17 Polyethylene Glycol 3350 [MiraLAX] 17 gm PO DAILY powd.pack 07/28/17 Allergies Allergy/AdvReac Type Severity Reaction Status Date / Time atenolol [From Tenormin] Allergy Hives Verified 12/23/16 17:06 Beta-Blockers Allergy Difficulty Verified 12/23/16 17:06 (Beta-Adrenergic Bloc Breathing diphenhydramine Allergy Irritable Verified 12/06/18 12:17 [From Benadryl] metoclopramide [From Reglan] Allergy Blurry Verified 07/25/17 17:30 Vision midazolam [From Versed] AdvReac Agitated Verified 12/23/16 17:06 All systems ED: reviewed and negative except as stated. Constitutional: Denies: fever Cardiovascular: Reports: chest pain Gastrointestinal: Reports: abdominal pain, nausea, vomiting Past Medical History - Past Medical History Source: patient Medical history: Reports: myocardial infarction, hypertension, asthma, cancer Surgical history: Reports: cancer surgery (esophagectomy with gastric pull up), herniorrhaphy, other (cardiac ablation) Psychiatric history: Reports: no psych history - Social History Smoking Status: Never smoker Smokeless Tobacco Status: No Alcohol use: Reports: none, occasionally Drug use: Reports: marijuana Physical Exam - General Limitations: no limitations General appearance: alert - Head Head exam: atraumatic, normocephalic, normal inspection - Eye Eye exam: Present: normal appearance - ENT ENT exam: normal exam, normal oropharynx, mucous membranes moist - Neck Neck exam: Present: normal inspection - Chest Chest inspection: Present: normal inspection, symmetric chest wall rise, other (R upper chest wall port) - Respiratory Respiratory exam: Present: normal lung sounds bilaterally, respiratory distress. Absent: prolonged expiratory phase - Cardiovascular Cardiovascular exam: Present: regular rate - Abdominal Exam Abdominal exam: Present: soft, tenderness. Absent: guarding, rebound - Extremities Exam Extremities exam: Present: normal inspection. Absent: pedal edema - Back Exam Back exam: Present: normal inspection - Neurological Exam Neurological exam: Present: alert, oriented X3, CN II-XII intact - Skin Skin exam: Present: warm, dry, intact, normal color Course Course Narrative: Patient appears in moderate discomfort. Patient will get CT scan of the chest pelvis given history of esophagectomy patient also get appropriate pain and anti emetic . Disposition pending. - Reevaluation(s) Reevaluation #1: Patient seen and examined. Patient was able tolerate the oral potassium. Patient states he is still complaining of some discomfort and pain. Patient CT scan results as well as labs discussed at bedside. Patient states that when this occurs he typically is admitted for pain control until he can tolerate foods. Time: 14:29 Vital Signs Temperature 97.7 F 12/06/18 11:39 Pulse Rate 98 12/06/18 11:39 Respiratory Rate 18 12/06/18 11:39 Blood Pressure 194/103 12/06/18 11:39 O2 Sat by Pulse Oximetry 100 12/06/18 11:39 Temperature 97.7 F 12/06/18 11:39 Pulse Rate 80 12/06/18 14:02 Respiratory Rate 18 12/06/18 14:02 Blood Pressure 164/88 12/06/18 14:02 O2 Sat by Pulse Oximetry 98 12/06/18 14:02 Oxygen Delivery Oxygen Delivery Room Air Medical Decision Making - MDM Narrative Medical decision making narrative: Patient presented for concerns of abdominal pain nausea vomiting. Prior history of esophageal cancer status post esophagectomy several years ago. States that symptom onsets been over the past 24 hours not able to keep his liquid morphine down. On initial exam the patient appeared to be in extremis with nausea vomiting. Patient is also having epigastric abdominal discomfort. States this is similar to prior evaluations. States that when he gets especially typically is admitted for symptomatic treatment to ensure that he can tolerate foods. Patient is not on any therapies or chemoradiation given his history of esophageal cancer in the past. Patient does occasionally smoke marijuana but not on a chronic basis. Patient's labs reviewed showed mild hypokalemia likely secondary to GI losses. Patient was treated with Haldol Benadryl as well as fentanyl. Patient was requiring subsequent doses of IV pain medicine as well as fluids. Given the patient's initial presentation and symptoms patient will be admitted for symptomatic control. - Lab Data Lab results reviewed: Yes I reviewed the patient's lab results. Result diagrams: 12/06/18 12:03 12/06/18 12:03 Lab Results 12/06/18 12/06/18 12/06/18 Range/Units 12:03 12:03 12:03 WBC 6.0 (4.3-11.1) K/mcL RBC 4.46 (4.19-5.50) M/mcL Hgb 14.2 (12.9-16.9) g/dL Hct 41.0 (37.5-50.1) % MCV 91.9 (83.0-100.0) fL MCH 31.8 (28.0-33.3) pg MCHC 34.6 (31.6-35.5) g/dL RDW 12.2 (11.5-14.5) % Plt Count 284 (140-400) K/mcL MPV 8.8 L (9.4-12.4) fL Immature Gran % 0.3 (0-4) % Seg Neutrophils % 85.3 % Lymphocytes % 10.1 % Monocytes % 4.1 % Eosinophils % 0.2 % Basophils % 0.0 % Neutrophils # 5.1 (1.6-8.9) K/mcL Lymphocytes # 0.6 (0.6-4.6) K/mcL Monocytes # 0.3 (0.0-1.3) K/mcL Eosinophils # 0.0 (0.0-0.6) K/mcL Basophils # 0.0 (0.0-0.2) K/mcL PT 11.2 (9.4-12.1) Seconds INR 1.0 APTT 35.3 (26.0-36.0) Seconds Sodium 137 (136-145) mEq/L Potassium 3.2 L (3.5-5.1) mEq/L Chloride 96 L (98-107) mEq/L Carbon Dioxide 26 (23-29) mEq/L BUN 12 (8-23) mg/dL Creatinine 0.64 L (0.70-1.30) mg/dL Est GFR ( Amer) > 60 (> 60) Est GFR (Non-Af Amer) > 60 (> 60) BUN/Creatinine Ratio 19 (6-26) Glucose 162 H (70-105) mg/dL Calculated Osmolality 287 (280-300) Lactic Acid (0.5-2.2) mmol/L Calcium 9.5 (8.6-10.3) mg/dL Magnesium 2.0 (1.6-2.6) mg/dL Total Bilirubin 0.6 (0.3-1.0) mg/dL Direct Bilirubin 0.1 (0.0-0.2) mg/dL Indirect Bilirubin 0.5 (0.0-1.2) mg/dL AST 16 (13-39) Units/L ALT 17 (7-52) Units/L Alkaline Phosphatase 73 (34-104) Units/L Troponin I < 0.03 (< 0.04) ng/mL Serum Total Protein 7.0 (6.4-8.9) g/dL Albumin 4.3 (3.5-5.7) g/dL Globulin 2.7 (2.4-3.5) g/dL Albumin/Globulin Ratio 1.6 (1.1-2.2) Lipase 17 (11-82) Units/L /07/26 Range/Units 12:03 WBC (4.3-11.1) K/mcL RBC (4.19-5.50) M/mcL Hgb (12.9-16.9) g/dL Hct (37.5-50.1) % MCV (83.0-100.0) fL MCH (28.0-33.3) pg MCHC (31.6-35.5) g/dL RDW (11.5-14.5) % Plt Count (140-400) K/mcL MPV (9.4-12.4) fL Immature Gran % (0-4) % Seg Neutrophils % % Lymphocytes % % Monocytes % % Eosinophils % % Basophils % % Neutrophils # (1.6-8.9) K/mcL Lymphocytes # (0.6-4.6) K/mcL Monocytes # (0.0-1.3) K/mcL Eosinophils # (0.0-0.6) K/mcL Basophils # (0.0-0.2) K/mcL PT (9.4-12.1) Seconds INR APTT (26.0-36.0) Seconds Sodium (136-145) mEq/L Potassium (3.5-5.1) mEq/L Chloride (98-107) mEq/L Carbon Dioxide (23-29) mEq/L BUN (8-23) mg/dL Creatinine (0.70-1.30) mg/dL Est GFR ( Amer) (> 60) Est GFR (Non-Af Amer) (> 60) BUN/Creatinine Ratio (6-26) Glucose (70-105) mg/dL Calculated Osmolality (280-300) Lactic Acid 1.3 (0.5-2.2) mmol/L Calcium (8.6-10.3) mg/dL Magnesium (1.6-2.6) mg/dL Total Bilirubin (0.3-1.0) mg/dL Direct Bilirubin (0.0-0.2) mg/dL Indirect Bilirubin (0.0-1.2) mg/dL AST (13-39) Units/L ALT (7-52) Units/L Alkaline Phosphatase (34-104) Units/L Troponin I (< 0.04) ng/mL Serum Total Protein (6.4-8.9) g/dL Albumin (3.5-5.7) g/dL Globulin (2.4-3.5) g/dL Albumin/Globulin Ratio (1.1-2.2) Lipase (11-82) Units/L - Radiology Data Radiology results reviewed: Yes I reviewed the patient's radiology results. CT Dissection 12/06/18 11:50 IMPRESSION: 1. Relatively normal CTA. Mild atherosclerotic changes of the bilateral internal iliac arteries with stenosis of approximately 50%. 2. Granulomatous changes in the chest and abdomen. 3. Evidence of prior esophagectomy and gastric pull-through with no abnormality. 4. Chronic biliary dilatation of uncertain significance. D/ / Ezra Jhaveri MD / Ezra Jhaveri MD Interpreting Provider: Ezra Jhaveri MD - EKG Data EKG #1 EKG attestation: Yes I reviewed and interpreted this EKG. EKG shows normal: sinus rhythm Rate: normal Rhythm: NSR [place]/QRS: normal Ectopy: PVC Interpretation: no acute changes, nonspecific ST-T wave changes S.B.A.R. - S.B.A.R. Situation: Demographics Background: Presenting Complaint Assessment: Vital Signs, Course and respsone to treatment, Patient/Family Expectation Recommendation: Barrier(s) to disposition, Recommendation based on pending studies, treatments, or consults S.B.A.R. Report Given to: Hospitalist Case Repor Time: 15:00 Attestation Statement - Attestation Attestation: I, Trace Vargas DO, examined this patient [id number] and my medical decision-making was reviewed with Dr. Fabian Juárez, Resident Physician. I agree with the documented findings, disposition and treatment plan as described except to the extent set forth below. I personally supervised and was present for the schwarz/critical portions of the procedures completed by the resident documented below. Please see my progress notes for details.
[2018-12-06 12:13] LABS: Eosinophils % 0.2 %; Hemoglobin 14.2 g/dL (12.9-16.9); Immature Granulocytes % 0.3 % (0-4); Lymphocytes # 0.6 K/mcL (0.6-4.6); Lymphocytes % 10.1 %; Mean Corpuscular HGB Conc 34.6 g/dL (31.6-35.5); Mean Corpuscular Hemoglobin 31.8 pg (28.0-33.3); Mean Corpuscular Volume 91.9 fL (83.0-100.0); Mean Platelet Volume 8.8 fL (9.4-12.4); Monocytes # 0.3 K/mcL (0.0-1.3); Monocytes % 4.1 %; Neutrophils # 5.1 K/mcL (1.6-8.9); Platelet Count 284 K/mcL (140-400); Red Blood Count 4.46 M/mcL (4.19-5.50); Red Cell Distribution Width 12.2 % (11.5-14.5); Segmented Neutrophils % 85.3 %
[2018-12-06 12:35] LABS: Alanine Aminotransferase 17 Units/L (7-52); Albumin 4.3 g/dL (3.5-5.7); Albumin/Globulin Ratio 1.6 (1.1-2.2); Alkaline Phosphatase 73 Units/L (34-104); Aspartate Amino Transferase 16 Units/L (13-39); BUN/Creatinine Ratio 19 (6-26); Bilirubin,Direct 0.1 mg/dL (0.0-0.2); Bilirubin,Indirect 0.5 mg/dL (0.0-1.2); Bilirubin,Total 0.6 mg/dL (0.3-1.0); Blood Urea Nitrogen 12 mg/dL (8-23); Calcium 9.5 mg/dL (8.6-10.3); Carbon Dioxide 26 mEq/L (23-29); Chloride 96 mEq/L (98-107); Globulin 2.7 g/dL (2.4-3.5); Glucose 162 mg/dL (70-105); Lipase 17 Units/L (11-82); Osmolality,Calculated 287 (280-300); Potassium 3.2 mEq/L (3.5-5.1); Sodium 137 mEq/L (136-145); Troponin I < 0.03 ng/mL (< 0.04); eGFR For Non-African Americans > 60 (> 60)
[2018-12-06 12:40] LABS: Prothrombin Time 11.2 Seconds (9.4-12.1)
[2018-12-06 12:42] LABS: Activated Partial Thrombo Time 35.3 Seconds (26.0-36.0)
[2018-12-06] MEDS ORDERED: Potassium Chloride Elixir 20 MEQ/15 ML UDC PO ONE (12:45)
--- NOTE | 2018-12-06 12:55 | Emergency Department Note ---
Disposition Clinical Impression: History of esophagectomy Abdominal pain Qualifiers: Abdominal location: epigastric Qualified Code(s): R10.13 - Epigastric pain Nausea and vomiting Qualifiers: Vomiting type: unspecified Vomiting Intractability: unspecified Qualified Code(s): R11.2 - Nausea with vomiting, unspecified Disposition: Admitted As Inpatient Condition: Fair Referrals: Quirino Ramos DO [Primary Care Provider] - Forms: ED Satisfaction Letter, Work/School Release Time of Disposition: 15:09 General Adult HPI - General Chief complaint: ED Abdominal Pain Stated complaint: Vomiting Esophgeal Pain Time Seen by Provider: 12/06/18 11:40 Source: patient Mode of arrival: ambulatory Limitations: no limitations - History of Present Illness Pain Scale: 10 - Related Data Home Medications Medication Instructions Recorded Confirmed Albuterol Sulfate [Ventolin Hfa] 2 puff IH Q4H PRN 07/14/15 12/23/16 Aspirin [Adult Low Dose Aspirin EC] 81 mg PO DAILY 07/14/15 12/23/16 Clopidogrel [Plavix] 75 mg PO DAILY 07/14/15 12/23/16 Losartan Potassium [Cozaar] 50 mg PO DAILY 07/14/15 12/23/16 Montelukast [Singulair] 10 mg PO DAILY 07/14/15 12/23/16 Morphine Sulfate SR (12 HR) [MS 60 mg PO Q12HR 07/14/15 12/23/16 Contin] Multivitamin [Multi-Day Vitamins] 1 tab PO DAILY 07/14/15 12/23/16 Pantoprazole Sodium [Protonix] 40 mg PO BID 07/14/15 12/23/16 Triamterene/HCTZ 37.5/25mg 1 tab PO BID 07/14/15 12/23/16 [Dyazide] Verapamil ER (24 HR) [Calan SR] 360 mg PO QAM 07/14/15 12/23/16 OxyCODONE Immed Rel [Roxicodone 20 20 mg PO Q3H PRN 10/31/16 12/23/16 MG] Venlafaxine [Effexor] 37.5 mg PO BID 10/31/16 12/23/16 Dicyclomine [Bentyl] 20 mg PO Q6H PRN 12/23/16 12/23/16 Albuterol Sulfate [Ventolin Hfa] 2 puff IH Q4H PRN 07/25/17 07/25/17 Amoxicillin/Clavulanate [Augmentin] 875 mg PO BID 07/25/17 07/25/17 Aspirin Enteric Coated [Aspirin EC] 81 mg PO DAILY 07/25/17 07/25/17 Clopidogrel [Plavix] 75 mg PO QPM 07/25/17 07/25/17 Dicyclomine [Bentyl] 20 mg PO QID PRN 07/25/17 07/25/17 Losartan Potassium [Cozaar] 50 mg PO QPM 07/25/17 07/25/17 Montelukast [Singulair] 10 mg PO QPM 07/25/17 07/25/17 Morphine Sulfate SR (12 HR) [MS 60 mg PO Q12H 07/25/17 07/25/17 Contin] Morphine Sulfate [Morphine Oral 20 mg PO Q1H PRN 07/25/17 07/25/17 Solution] Multivitamin [One Daily Essential] 1 each PO DAILY 07/25/17 07/25/17 Ondansetron [Zofran ODT] 8 mg SL TID PRN 07/25/17 07/25/17 OxyCODONE Immed Rel [Roxicodone 20 20 mg PO Q3H PRN 07/25/17 07/25/17 MG] Pantoprazole Sodium 40 mg PO BID 07/25/17 07/25/17 Triamterene/HCTZ 37.5/25mg 1 each PO BID 07/25/17 07/25/17 [Dyazide] Verapamil HCl 360 mg PO QPM 07/25/17 07/25/17 Zolpidem [Ambien] 10 mg PO HS PRN 07/25/17 07/25/17 predniSONE [PredniSONE] 40 mg PO DAILY 07/25/17 07/25/17 Previous Rx's Medication Instructions Recorded Docusate [Colace] 200 mg PO DAILY capsule 07/28/17 Polyethylene Glycol 3350 [MiraLAX] 17 gm PO DAILY powd.pack 07/28/17 Allergies Allergy/AdvReac Type Severity Reaction Status Date / Time atenolol [From Tenormin] Allergy Hives Verified 12/23/16 17:06 Beta-Blockers Allergy Difficulty Verified 12/23/16 17:06 (Beta-Adrenergic Bloc Breathing diphenhydramine Allergy Irritable Verified 12/06/18 12:17 [From Benadryl] metoclopramide [From Reglan] Allergy Blurry Verified 07/25/17 17:30 Vision midazolam [From Versed] AdvReac Agitated Verified 12/23/16 17:06 Constitutional: Denies: fever Cardiovascular: Reports: chest pain Gastrointestinal: Reports: abdominal pain, nausea, vomiting Past Medical History - Past Medical History Medical history: Reports: myocardial infarction, hypertension, asthma, cancer Surgical history: Reports: cancer surgery (esophagectomy with gastric pull up), herniorrhaphy, other (cardiac ablation) Psychiatric history: Reports: no psych history - Social History Smoking Status: Never smoker Smokeless Tobacco Status: No Alcohol use: Reports: none, occasionally Drug use: Reports: marijuana Physical Exam - General Limitations: no limitations General appearance: alert Course Vital Signs Temperature 97.7 F 12/06/18 11:39 Pulse Rate 98 12/06/18 11:39 Respiratory Rate 18 12/06/18 11:39 Blood Pressure 194/103 12/06/18 11:39 O2 Sat by Pulse Oximetry 100 12/06/18 11:39 Temperature 97.7 F 12/06/18 11:39 Pulse Rate 80 12/06/18 14:02 Respiratory Rate 18 12/06/18 14:02 Blood Pressure 164/88 12/06/18 14:02 O2 Sat by Pulse Oximetry 98 12/06/18 14:02 Oxygen Delivery Oxygen Delivery Room Air Medical Decision Making - Lab Data Result diagrams: 12/06/18 12:03 12/06/18 12:03 Lab Results 12/06/18 12/06/18 12/06/18 Range/Units 12:03 12:03 12:03 WBC 6.0 (4.3-11.1) K/mcL RBC 4.46 (4.19-5.50) M/mcL Hgb 14.2 (12.9-16.9) g/dL Hct 41.0 (37.5-50.1) % MCV 91.9 (83.0-100.0) fL MCH 31.8 (28.0-33.3) pg MCHC 34.6 (31.6-35.5) g/dL RDW 12.2 (11.5-14.5) % Plt Count 284 (140-400) K/mcL MPV 8.8 L (9.4-12.4) fL Immature Gran % 0.3 (0-4) % Seg Neutrophils % 85.3 % Lymphocytes % 10.1 % Monocytes % 4.1 % Eosinophils % 0.2 % Basophils % 0.0 % Neutrophils # 5.1 (1.6-8.9) K/mcL Lymphocytes # 0.6 (0.6-4.6) K/mcL Monocytes # 0.3 (0.0-1.3) K/mcL Eosinophils # 0.0 (0.0-0.6) K/mcL Basophils # 0.0 (0.0-0.2) K/mcL PT 11.2 (9.4-12.1) Seconds INR 1.0 APTT 35.3 (26.0-36.0) Seconds Sodium 137 (136-145) mEq/L Potassium 3.2 L (3.5-5.1) mEq/L Chloride 96 L (98-107) mEq/L Carbon Dioxide 26 (23-29) mEq/L BUN 12 (8-23) mg/dL Creatinine 0.64 L (0.70-1.30) mg/dL Est GFR ( Amer) > 60 (> 60) Est GFR (Non-Af Amer) > 60 (> 60) BUN/Creatinine Ratio 19 (6-26) Glucose 162 H (70-105) mg/dL Calculated Osmolality 287 (280-300) Lactic Acid (0.5-2.2) mmol/L Calcium 9.5 (8.6-10.3) mg/dL Magnesium 2.0 (1.6-2.6) mg/dL Total Bilirubin 0.6 (0.3-1.0) mg/dL Direct Bilirubin 0.1 (0.0-0.2) mg/dL Indirect Bilirubin 0.5 (0.0-1.2) mg/dL AST 16 (13-39) Units/L ALT 17 (7-52) Units/L Alkaline Phosphatase 73 (34-104) Units/L Troponin I < 0.03 (< 0.04) ng/mL Serum Total Protein 7.0 (6.4-8.9) g/dL Albumin 4.3 (3.5-5.7) g/dL Globulin 2.7 (2.4-3.5) g/dL Albumin/Globulin Ratio 1.6 (1.1-2.2) Lipase 17 (11-82) Units/L 12/06/18 Range/Units 12:03 WBC (4.3-11.1) K/mcL RBC (4.19-5.50) M/mcL Hgb (12.9-16.9) g/dL Hct (37.5-50.1) % MCV (83.0-100.0) fL MCH (28.0-33.3) pg MCHC (31.6-35.5) g/dL RDW (11.5-14.5) % Plt Count (140-400) K/mcL MPV (9.4-12.4) fL Immature Gran % (0-4) % Seg Neutrophils % % Lymphocytes % % Monocytes % % Eosinophils % % Basophils % % Neutrophils # (1.6-8.9) K/mcL Lymphocytes # (0.6-4.6) K/mcL Monocytes # (0.0-1.3) K/mcL Eosinophils # (0.0-0.6) K/mcL Basophils # (0.0-0.2) K/mcL PT (9.4-12.1) Seconds INR APTT (26.0-36.0) Seconds Sodium (136-145) mEq/L Potassium (3.5-5.1) mEq/L Chloride (98-107) mEq/L Carbon Dioxide (23-29) mEq/L BUN (8-23) mg/dL Creatinine (0.70-1.30) mg/dL Est GFR ( Amer) (> 60) Est GFR (Non-Af Amer) (> 60) BUN/Creatinine Ratio (6-26) Glucose (70-105) mg/dL Calculated Osmolality (280-300) Lactic Acid 1.3 (0.5-2.2) mmol/L Calcium (8.6-10.3) mg/dL Magnesium (1.6-2.6) mg/dL Total Bilirubin (0.3-1.0) mg/dL Direct Bilirubin (0.0-0.2) mg/dL Indirect Bilirubin (0.0-1.2) mg/dL AST (13-39) Units/L ALT (7-52) Units/L Alkaline Phosphatase (34-104) Units/L Troponin I (< 0.04) ng/mL Serum Total Protein (6.4-8.9) g/dL Albumin (3.5-5.7) g/dL Globulin (2.4-3.5) g/dL Albumin/Globulin Ratio (1.1-2.2) Lipase (11-82) Units/L Attestation Statement - Attestation Attestation: I, Trace Vargas DO, examined this patient [id number] and my medical decision-making was reviewed with Dr. Fabian Juárez, Resident Physician. I agree with the documented findings, disposition and treatment plan as described except to the extent set forth below. I personally supervised and was present for the schwarz/critical portions of the procedures completed by the resident documented below. Please see my progress notes for details. 63-year-old male presents emergency room with complaint of esophageal spasm and pain. Patient has a long history of esophageal issue secondary to too much food intake versus vomiting. Patient esophageal to me over 10 years ago secondary to esophageal cancer. Is never had any issues since then. Periodically, he will get the spasms and pain. Currently, he is denying chest pain shortness of breath headache vision changes. His nausea is better controlled here but his had persistent nausea and vomiting for the last 24 hours. Denies any diarrhea. Denies any headache or vision change. He has not fallen or injured himself. He is taking all his normal medications. Vital signs are stable. Patient is alert he is oriented. Oropharynx is patent mucous membranes are dry. Trachea is midline. Heart was initially tachycardic and regular. Lungs are clear. No crepitus or palpable injuries to the neck or chest wall this time. Abdomen is soft with epigastric discomfort and pain is noted. Patient has his legs trauma to his chest. Lower abdomen is uninvolved. Extremities are normal. Lengthy discussion was had with the patient and the family and this is identical to all his other presentations in the past. Patient was CT dissection study along with CBC chemistry troponin and BNP collected here in the emergency department. Fluids pain medication nausea medication will be provided. [place] the antibiotic medications and provide symptomatic control. Patient's disposition to be determined. All the family is at the bedside and they are comfortable this plan. No other acute issues noted. Disposition pending full workup and treatment course. Patient again is describing this is identical to all of his other issues and is not concerned about any other underlying etiology. See detailed documentation the physical exam, medical intervention, medical decision-making and disposition in the resident physici an's note. No critical care applied the patient's treatment course at this time. 1400 CT imaging of the chest and abdomen appear to be unremarkable without acute findings at this time. Chronic biliary dilation is noted. No other acute etiology at this point. Patient is still having nausea without vomiting. He also has persistent pain. All the symptoms are clinically better than what they were initially but he is still in distress. Patient typically requires admission for symptomatic control to get him through the initial onset of the presentation here today. Because of that, the patient will be admitted for IV hydration and by mouth status and symptomatic control. No other acute issues noted this time. Patient is otherwise currently stable. 1444 Patient was discussed with the hospitalist Dr. eaton. Detailed review the presentation symptoms medical intervention, including the Haldol, were discussed at length. No other acute concerns or issues noted this point. Patient is otherwise clinical stable will be admitted for pain control and symptomatic management of what appears to be acute on chronic presentation for esophageal spasm secondary to esophagectomy. Patient will monitor in emergency room until admission process is completed.
[2018-12-06] MEDS ORDERED: 0.9 % Sodium Chloride 1,000 ML ONE (14:37)
[2018-12-06] MEDS ORDERED: 0.9 % Sodium Chloride 1,000 ML IVC SCH (14:45)
[2018-12-06] MEDS ORDERED: Ketamine *HR* 20 MG in 0.9 % Sodium Chloride 100 ML IVPB ONE (14:47)
--- NOTE | 2018-12-06 15:19 | Internal Med History&Physical ---
Date of Encounter: 12/06/18 Time of Encounter: 15:40 Internal Medicine - H&P: HPI Chief complaint: emesis and epigastric pain Admitted From: Home Plans for Post Hospital Care: Home History of present illness: Mr. Flood is a 63 year old male pmhx esophageal cancer s/p esophagectomy with gastric pull up at [facility] 2014 where he currently follows with Oncology and Palliative care for pain management, chronic episodes of intermittent epigastric pain with inability to keep down food/drink/medication assoicated with over eating per the pt, CAD on asa + plavix, HTN. He presented from [facility] one day of epigastric pain, emesis of any food/drink/medication. This is identical to prior episodes per the pt. He notes that when this occurs it is related always to an over eating episode which did occur the evening prior. Pain is localized to epigastrium, severe, without radiation. Improved with pain meds but couldn't keep down the liquid morphine he has available for these situations and pain only improves with IV pain medication, as it did to now mild pain currently after fentanyl. Pain is assoicated with emesis with intake that is non bloody, non bilious. He denies associated diarrhea or other abdominal pain. He denies any sick contacts with similar symptoms, eating out/new dining, travel. No rash, itching, skin color changes. No hematochezia, melena, brbpr. No fevers or chills. cv- denies chest pain, palpitations, sob, chest pressure, syncope or presyncope, le edema pulm- no sob, cough, wheezing, pnd, dyspnea on exertion gu- no dysuria, hematuria, has been urinating at normal amount despite poor intake today He is able to name most of his [facility] emedicaitons and doses Home pain control regimen is Morphine SR 60 mg BID, Dialudid PO 8mg q 4 h for breakthrough pain He has home liquid morphine for events such as these ED course included CT scan dissection without acute changes or etiology of pain, 40 meq PO liquid KCL which he kept down for K +3.2, no fever, no wbc elevation, hgb nml EKG personally reviewed and NSR without ischemic changes, trop neg BP elevated but now improved with pain control full code Past Med Surg Social Fam HX - Past Medical History Medical history: asthma, cancer (esophageal 2014), coronary artery disease, hypertension, myocardial infarction Additional medical history: esophageal cancer Psychiatric history: no psych history - Past Surgical History Surgical History: cancer surgery (esophagectomy with gastric pull up 2014), herniorrhaphy, other (cardiac ablation) - Social History Smoking Status: Never smoker Smokeless Tobacco Status: No Alcohol use: none, occasionally Drug use: marijuana - Family History Mother Living Status: Hx Family Cancer: Yes Father Living Status: Hx Family Cardiac Disorders: Yes (heart disease) Hx Family Respiratory Disorders: Yes (copd) Hx Family Endocrine Disorder: Yes (dm) Internal Medicine - H&P: Meds Albuterol Sulfate [Ventolin Hfa] 2 puff IH Q4H PRN 07/14/15 [History] Aspirin [Adult Low Dose Aspirin EC] 81 mg PO DAILY 07/14/15 [History] Clopidogrel [Plavix] 75 mg PO DAILY 07/14/15 [History] Losartan Potassium [Cozaar] 50 mg PO DAILY 07/14/15 [History] Montelukast [Singulair] 10 mg PO DAILY 07/14/15 [History] Morphine Sulfate SR (12 HR) [MS Contin] 60 mg PO Q12HR 07/14/15 [History] Multivitamin [Multi-Day Vitamins] 1 tab PO DAILY 07/14/15 [History] Pantoprazole Sodium [Protonix] 40 mg PO BID 07/14/15 [History] Triamterene/HCTZ 37.5/25mg [Dyazide] 1 tab PO BID 07/14/15 [History] Verapamil ER (24 HR) [Calan SR] 360 mg PO QAM 07/14/15 [History] OxyCODONE Immed Rel [Roxicodone 20 MG] 20 mg PO Q3H PRN 10/31/16 [History] Venlafaxine [Effexor] 37.5 mg PO BID 10/31/16 [History] Dicyclomine [Bentyl] 20 mg PO Q6H PRN 12/23/16 [History] Albuterol Sulfate [Ventolin Hfa] 2 puff IH Q4H PRN 07/25/17 [History] Amoxicillin/Clavulanate [Augmentin] 875 mg PO BID 07/25/17 [History] Aspirin Enteric Coated [Aspirin EC] 81 mg PO DAILY 07/25/17 [History] Clopidogrel [Plavix] 75 mg PO QPM 07/25/17 [History] Dicyclomine [Bentyl] 20 mg PO QID PRN 07/25/17 [History] Losartan Potassium [Cozaar] 50 mg PO QPM 07/25/17 [History] Montelukast [Singulair] 10 mg PO QPM 07/25/17 [History] Morphine Sulfate SR (12 HR) [MS Contin] 60 mg PO Q12H 07/25/17 [History] Morphine Sulfate [Morphine Oral Solution] 20 mg PO Q1H PRN 07/25/17 [History] Multivitamin [One Daily Essential] 1 each PO DAILY 07/25/17 [History] Ondansetron [Zofran ODT] 8 mg SL TID PRN 07/25/17 [History] OxyCODONE Immed Rel [Roxicodone 20 MG] 20 mg PO Q3H PRN 07/25/17 [History] Pantoprazole Sodium 40 mg PO BID 07/25/17 [History] Triamterene/HCTZ 37.5/25mg [Dyazide] 1 each PO BID 07/25/17 [History] Verapamil HCl 360 mg PO QPM 07/25/17 [History] Zolpidem [Ambien] 10 mg PO HS PRN 07/25/17 [History] predniSONE [PredniSONE] 40 mg PO DAILY 07/25/17 [History] Docusate [Colace] 200 mg PO DAILY capsule 07/28/17 [Rx] Polyethylene Glycol 3350 [MiraLAX] 17 gm PO DAILY powd.pack 07/28/17 [Rx] Allergy/AdvReac Type Severity Reaction Status Date / Time atenolol [From Tenormin] Allergy Hives Verified 12/23/16 17:06 Beta-Blockers Allergy Difficulty Verified 12/23/16 17:06 (Beta-Adrenergic Bloc Breathing diphenhydramine Allergy Irritable Verified 12/06/18 12:17 [From Benadryl] metoclopramide [From Reglan] Allergy Blurry Verified 07/25/17 17:30 Vision midazolam [From Versed] AdvReac Agitated Verified 12/23/16 17:06 All Systems PM: A 10-system review of systems was performed and is negative for pertinent findings except as documented above in the HPI. - Constitutional Vitals: Temp Pulse Resp BP Pulse Ox 97.7 F 80 18 164/88 98 12/06/18 11:39 12/06/18 14:02 12/06/18 14:02 12/06/18 14:02 12/06/18 14:02 Exam: General: awake, alert, appears stated age HEENT:EOM intact, pupils equal, round, moist mucus membranes, no scleral icterus Neck: supple, trachea midline Cardiovascular:regular rate and rhythm, normal S1 & S2, no murmurs. No JVD. no lower extremity edema Lungs:Normal breath sounds, no wheezes, or crackles. Normal respiratory effort on room air Abdomen:Soft, + epigstrium pain no gaurding, non-distended, no rigidity, + bowel sounds Extremities:No deformity, no edema or tenderness, no joint swelling or clubbing. Neurological: AAOx3, CN grossly intact Skin:Normal color, no rash, no pallor, no jaundice Internal Med - H&P Results - Labs CBC & Chem 7: 12/06/18 12:03 12/06/18 12:03 Labs: Short CBC 12/06/18 Range/Units 12:03 WBC 6.0 (4.3-11.1) K/mcL Hgb 14.2 (12.9-16.9) g/dL Hct 41.0 (37.5-50.1) % Plt Count 284 (140-400) K/mcL Neutrophils # 5.1 (1.6-8.9) K/mcL BMP 12/06/18 12:03 Sodium 137 Potassium 3.2 L Chloride 96 L Carbon Dioxide 26 BUN 12 Creatinine 0.64 L Glucose 162 H Calcium 9.5 Cardiac Enzymes 12/06/18 Range/Units 12:03 Troponin I < 0.03 (< 0.04) ng/mL Liver Function 12/06/18 Range/Units 12:03 Total Bilirubin 0.6 (0.3-1.0) mg/dL Direct Bilirubin 0.1 (0.0-0.2) mg/dL AST 16 (13-39) Units/L ALT 17 (7-52) Units/L Alkaline Phosphatase 73 (34-104) Units/L Albumin 4.3 (3.5-5.7) g/dL - Impressions ITS Impressions CT Dissection 12/06/18 11:50 IMPRESSION: 1. Relatively normal CTA. Mild atherosclerotic changes of the bilateral internal iliac arteries with stenosis of approximately 50%. 2. Granulomatous changes in the chest and abdomen. 3. Evidence of prior esophagectomy and gastric pull-through with no abnormality. 4. Chronic biliary dilatation of uncertain significance. D/ / Ezra Jhaveri MD / Ezra Jhaveri MD Interpreting Provider: Ezra Jhaveri MD - Assessment and Plan (1) Abdominal pain Current Visit: Yes Status: Acute Qualifiers: Abdominal location: epigastric Qualified Code(s): R10.13 - Epigastric pain (2) Nausea & vomiting Current Visit: Yes Status: Acute Qualifiers: Vomiting type: unspecified Vomiting Intractability: unspecified Qualified Code(s): R11.2 - Nausea with vomiting, unspecified (3) History of esophagectomy Current Visit: Yes Status: Chronic (4) Hypokalemia Current Visit: No Status: Acute (5) CAD (coronary artery disease) Current Visit: No Status: Chronic Qualifiers: Coronary Disease-Associated Artery/Lesion type: [place] artery [place] vs. transplanted heart: [place] heart Associated angina: without angina Qualified Code(s): I25.10 - Atherosclerotic heart disease of [place] coronary artery without angina pectoris (6) Esophageal cancer Current Visit: No Status: Chronic Qualifiers: Malignant neoplasm of esophagus location: unspecified location Qualified Code(s): C15.9 - Malignant neoplasm of esophagus, unspecified (7) Hypertension Current Visit: No Status: Chronic Qualifiers: Hypertension type: essential hypertension Qualified Code(s): I10 - Essential (primary) hypertension - Summary of Assessment and Plan Summary of Assessment and Plan: Epigastric Pain, intractable Nausea/Emesis, improving s/p meds in ED History of many similar episodes 2/2 overeating s/p GAstrectomy with gastric pull up Esophageal cancer hx follows at [facility] with Onc and Palliative Appears to be the same this time as over ate prior to onset of symptoms Trop neg, EKG without any ischemic changes CT Dissection done and no dissection, chronic changes identified, there is no identifiable cause of the abd pain Lipase neg, CMP unremarkable -s/p IV benadryl, IV Haldol in ED with resolution of nausea/emesis -received IV Fentanyl 100 mcg x2 doses in ED--he is awake alert with pain now 4/10 and no signs of over sedation -cont IVFs, cont IV prn fentanyl as d/w pharmacist for mod and severe pain until he can reliably take home medications PO for pain -clear liquid diet and pt will only attempt later if pain and nausea -he is very well versed in his medical history, very educated in regards to opiate use and should be reliable in taking meds as needed IV while here and reporting when he can convert to oral or attempt oral intake; I have no concern for opioid abuse -cont home PPI BID but as IV for now -cont zofran prn n/v and phenergan for breakthrough Hypokalemia- 3.2- s/p 40 meq PO in ED and no emesis after, Mag is 2, tele, monitor lytes CAD- cont home asa, plavix, arb and acei when able to tolerate PO HTN- as above, prn hydralazine vte ppx scds - Time Spent With Patient Total time spent is greater than 50% in coordination of care (as documented) at patient's floor/unit and/or counseling patient:
[2018-12-06] MEDS ORDERED: *HR* Promethazine 25 MG/ML VIAL IVP PRN (15:51)
[2018-12-06] MEDS ORDERED: Acetaminophen 325 MG TABLET PO PRN (16:19)
[2018-12-06] MEDS ORDERED: Naloxone 0.4 MG/ML INJ IVP PRN (16:19)
[2018-12-06] MEDS: *HR* FentaNYL (PF) 100 MCG/2 ML VIAL IVP PRN ×3 (17:24→23:29)
[2018-12-06] MEDS ORDERED: *HR* FentaNYL (PF) 100 MCG/2 ML VIAL IVP PRN (18:30)
[2018-12-06] MEDS: Pantoprazole 40 MG VIAL IVP SCH (20:41)
[2018-12-06] MEDS ORDERED: *HR* Morphine Sulfate SR (12 HR) 60 MG TABLET.ER PO SCH (21:00)
[2018-12-06] MEDS: 0.9 % Sodium Chloride 1,000 ML IVC SCH (23:31)
[2018-12-07] MEDS: Ondansetron 4 MG/2 ML VIAL IVP PRN ×2 (00:51→11:26)
[2018-12-07] MEDS ORDERED: Acetaminophen IV 500 MG/50 ML INFUS..BTL IVPB ONE (01:09)
[2018-12-07] MEDS: *HR* FentaNYL (PF) 100 MCG/2 ML VIAL IVP PRN ×6 (03:31→16:41)
[2018-12-07] MEDS: Pantoprazole 40 MG VIAL IVP SCH (04:55)
[2018-12-07 05:08] LABS: Basophils % 0.1 %; Hematocrit 37.7 % (37.5-50.1); Hemoglobin 12.7 g/dL (12.9-16.9); Immature Granulocytes % 0.6 % (0-4); Lymphocytes # 0.7 K/mcL (0.6-4.6); Lymphocytes % 9.2 %; Mean Corpuscular HGB Conc 33.7 g/dL (31.6-35.5); Mean Corpuscular Hemoglobin 31.8 pg (28.0-33.3); Mean Corpuscular Volume 94.3 fL (83.0-100.0); Mean Platelet Volume 8.9 fL (9.4-12.4); Monocytes # 0.6 K/mcL (0.0-1.3); Monocytes % 7.8 %; Neutrophils # 6.6 K/mcL (1.6-8.9); Platelet Count 256 K/mcL (140-400); Red Cell Distribution Width 12.5 % (11.5-14.5); Segmented Neutrophils % 82.3 %
[2018-12-07 05:27] LABS: BUN/Creatinine Ratio 18 (6-26); Blood Urea Nitrogen 11 mg/dL (8-23); Calcium 8.4 mg/dL (8.6-10.3); Carbon Dioxide 26 mEq/L (23-29); Chloride 103 mEq/L (98-107); Glucose 132 mg/dL (70-105); Osmolality,Calculated 285 (280-300); Potassium 3.2 mEq/L (3.5-5.1); Sodium 137 mEq/L (136-145); eGFR For Non-African Americans > 60 (> 60)
[2018-12-07] MEDS ORDERED: Potassium Chloride Elixir 20 MEQ/15 ML UDC PO ONE (07:31)
--- NOTE | 2018-12-07 07:48 | Discharge Summary ---
- NOTES TO OUTPATIENT PROVIDER Notes to Outpatient Provider: transfer to [facility] Orders not resulted at time of discharge: Pending orders 12/06/18 11:48 ECG 12 lead ECG [ECG] Stat 12/07/18 07:16 Hemoglobin and Hematocrit [HEME] Stat Date of Encounter: 12/07/18 Time of Encounter: 06:50 - Discharge Diagnosis (1) Abdominal pain Priority: Primary Status: Acute Qualifiers: Abdominal location: epigastric Qualified Code(s): R10.13 - Epigastric pain (2) Nausea & vomiting Priority: Secondary Status: Acute Qualifiers: Vomiting type: unspecified Vomiting Intractability: unspecified Qualified Code(s): R11.2 - Nausea with vomiting, unspecified (3) History of esophagectomy Priority: Secondary Status: Chronic (4) Hypokalemia Priority: Secondary Status: Acute (5) CAD (coronary artery disease) Priority: Secondary Status: Chronic Qualifiers: Coronary Disease-Associated Artery/Lesion type: [place] artery [place] vs. 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 He presented with epigastric pain, nausea, emesis all intractable and unable to take any PO intake including water or home meds. He was stating this is typical for him with any over eating, which he did, with intermittent episodes over the last year requiring inpt IV pain meds. His initial ED work up was negative for infection, CT dissection study showed no aortic disseciton , chronic post surg changes and no acute changes in abd/pelvis. Trop and ekg negative. BP elevation with pain and not taking home meds. Hgb was in 14s and normal. He was admitted for observation and IV pain med control. He still has uncontrolled pain on IV fentanyl receiving 100 mcg pushes q4h and still unable to take oral intake. He had a hgb drop to 12.7 and is hemodynamically stable. He would benefit from transfer to his [facility] team to futher evaluate his stomach with new hgb drop and continued epigastric pain. He has been accepted to [facility] and is awaiting bed placement. Discharge discussed with: patient, nurse, other ([facility] ) Time spent discussing smoking cessation with patient: more than 10 minutes - Time Spent with Patient Total time spent providing and/or coordinating discharge services: Time spent: Greater than 30 minutes (50 min) - Discharge Medications Prescriptions: New Promethazine [Phenergan] 12.5 mg IVP Q8H PRN vial PRN Reason: emesis not relieved by zofran Continued Morphine Sulfate SR (12 HR) [MS Contin] 60 mg PO Q12HR Triamterene/HCTZ 37.5/25mg [Dyazide] 1 tab PO BID Multivitamin [Multi-Day Vitamins] 1 tab PO DAILY Losartan Potassium [Cozaar] 50 mg PO DAILY Verapamil HCl 360 mg PO QAM Montelukast [Singulair] 10 mg PO QPM Clopidogrel [Plavix] 75 mg PO QPM Morphine Sulfate [Morphine Oral Solution] 20 mg PO Q3H PRN PRN Reason: Pain Zolpidem [Ambien] 10 mg PO HS PRN PRN Reason: Sleep Pantoprazole Sodium 40 mg PO BID Aspirin Enteric Coated [Aspirin EC] 81 mg PO DAILY Docusate [Colace] 200 mg PO DAILY capsule Discontinued Aspirin [Adult Low Dose Aspirin EC] 81 mg PO DAILY Multivitamin [One Daily Essential] 1 each PO DAILY Home Medications: Morphine Sulfate SR (12 HR) [MS Contin] 60 mg PO Q12HR 07/14/15 [History] Multivitamin [Multi-Day Vitamins] 1 tab PO DAILY 07/14/15 [History] Triamterene/HCTZ 37.5/25mg [Dyazide] 1 tab PO BID 07/14/15 [History] Aspirin Enteric Coated [Aspirin EC] 81 mg PO DAILY 07/25/17 [History] Clopidogrel [Plavix] 75 mg PO QPM 07/25/17 [History] Losartan Potassium [Cozaar] 50 mg PO DAILY 07/25/17 [History] Montelukast [Singulair] 10 mg PO QPM 07/25/17 [History] Morphine Sulfate [Morphine Oral Solution] 20 mg PO Q3H PRN 07/25/17 [History] Pantoprazole Sodium 40 mg PO BID 07/25/17 [History] Verapamil HCl 360 mg PO QAM 07/25/17 [History] Zolpidem [Ambien] 10 mg PO HS PRN 07/25/17 [History] Docusate [Colace] 200 mg PO DAILY capsule 07/28/17 [Rx] Promethazine [Phenergan] 12.5 mg IVP Q8H PRN vial 12/07/18 [Rx] Allergies/Adverse Reactions: Allergy/AdvReac Type Severity Reaction Status Date / Time atenolol [From Tenormin] Allergy Hives Verified 12/23/16 17:06 Beta-Blockers Allergy Difficulty Verified 12/23/16 17:06 (Beta-Adrenergic Bloc Breathing diphenhydramine Allergy Irritable Verified 12/06/18 12:17 [From Benadryl] metoclopramide [From Reglan] Allergy Blurry Verified 07/25/17 17:30 Vision midazolam [From Versed] AdvReac Agitated Verified 12/23/16 17:06 Date of admission: 12/06/18 15:14 Primary care physician: Quirino Ramos DO Discharging clinician: Emelia Hope - Constitutional Vitals: Temp Pulse Resp BP Pulse Ox 97.7 F 86 16 161/84 98 12/07/18 06:25 12/07/18 06:25 12/07/18 06:25 12/07/18 06:25 12/07/18 06:25 Exam: General: awake, alert, appears stated age HEENT:EOM intact, pupils equal, round, moist mucus membranes, no scleral icterus, no conjunctival pallor Neck: supple, trachea midline Cardiovascular:regular rate and rhythm, normal S1 & S2, no murmurs. No JVD. no lower extremity edema Lungs:Normal breath sounds, no wheezes, or crackles. Normal respiratory effort on room air Abdomen:Soft, + epigstrium pain no gaurding, non-distended, no rigidity, decreased bowel sounds Neurological: AAOx3, CN grossly intact Skin:Normal color, no rash, no pallor, no jaundice - Patient Status Disposition: Transfer Intermediate Care Fac Condition: Fair Functional capacity at discharge: independent ambulation Overall status at discharge: patient is not back to baseline - Discharge Instructions Follow Up With: Quirino Ramos DO [Primary Care Provider] - - Diet and Activity Activity: increase activity as tolerated Diet: other (npo)
[2018-12-07 07:56] LABS: Hematocrit 36.9 % (37.5-50.1); Hemoglobin 12.8 g/dL (12.9-16.9)
[2018-12-07] MEDS ORDERED: Aspirin Enteric Coated 81 MG Tablet PO SCH (09:00)
[2018-12-07] MEDS ORDERED: Verapamil ER (24 HR) 180 MG TABLET.ER PO SCH (09:00)
[2018-12-07] MEDS: 0.9 % Sodium Chloride 1,000 ML IVC SCH (10:31)
[2018-12-07 16:34] VITALS: BP 170/85
--- NOTE | 2018-12-08 12:58 | Electrocardiograph Report ---
[place] [id number] Test Date: 2018-12-06 Pat Name: Robert Flood Department: [id number] Room: [facility] Gender: M Return Agent Airport: : [id number] Requested By: Fabian Juárez Order Number: [id number] Reading MD: Raghu Venegas Measurements Intervals [place] Rate: 86 P: 51 [place]: 159 QRS: 75 QRSD: 102 T: 17 QT: 430 QTc: 515 Interpretive Statements Sinus arrhythmia Ventricular premature complex Prolonged QT interval Electronically Signed On 12-08-2018 12:57:07 EDT by Raghu Venegas
== END 2018-12-07 16:47 ==
LOC: EMEROOARM 11:36 → 3NENU 11:36 → SUATTDRO 15:14 → 3NENU 15:40
PROVIDERS: ADMIT Internal Medicine; ATTEND Internal Medicine

== ENCOUNTER 2019-07-15 11:30 | Observation (INO) ==
[2019-07-15] MEDS ORDERED: *HR* Promethazine 25 MG/ML VIAL IVP ONE (12:05)
[2019-07-15] MEDS ORDERED: Ipratropium/Albuterol Neb 3 ML IH ONE (12:05)
[2019-07-15] MEDS ORDERED: methylPREDNISolone 125 MG/2 ML VIAL IVP ONE (12:05)
[2019-07-15] MEDS ORDERED: 0.9 % Sodium Chloride 1,000 ML IVC ONE (12:06)
[2019-07-15] MEDS ORDERED: *HR* FentaNYL (PF) 100 MCG/2 ML VIAL IVP ONE (12:06)
[2019-07-15 12:38] LABS: Alanine Aminotransferase 14 Units/L (7-52); Albumin 4.3 g/dL (3.5-5.7); Albumin/Globulin Ratio 1.4 (1.1-2.2); Alkaline Phosphatase 96 Units/L (34-104); Aspartate Amino Transferase 14 Units/L (13-39); BUN/Creatinine Ratio 19 (6-26); Bilirubin,Direct 0.1 mg/dL (0.0-0.2); Bilirubin,Indirect 0.5 mg/dL (0.0-1.0); Bilirubin,Total 0.6 mg/dL (0.3-1.0); Blood Urea Nitrogen 16 mg/dL (8-23); Calcium 9.7 mg/dL (8.6-10.3); Carbon Dioxide 23 mEq/L (23-29); Chloride 96 mEq/L (98-107); Glucose 145 mg/dL (70-105); Lipase 16 Units/L (11-82); Osmolality,Calculated 282 (280-300); Potassium 3.5 mEq/L (3.5-5.1); Sodium 134 mEq/L (136-145); Total Protein 7.3 g/dL (6.4-8.9); eGFR For African Americans > 60 (> 60); eGFR For Non-African Americans > 60 (> 60)
[2019-07-15 12:49] LABS: Basophils % 0.1 %; Eosinophils % 0.1 %; Hematocrit 44.1 % (37.5-50.1); Hemoglobin 15.3 g/dL (12.9-16.9); Immature Granulocytes % 0.4 % (0-4); Lymphocytes # 0.9 K/mcL (0.6-4.6); Lymphocytes % 6.6 %; Mean Corpuscular HGB Conc 34.7 g/dL (31.6-35.5); Mean Corpuscular Hemoglobin 32.7 pg (28.0-33.3); Mean Corpuscular Volume 94.2 fL (83.0-100.0); Mean Platelet Volume 8.3 fL (9.4-12.4); Monocytes # 0.7 K/mcL (0.0-1.3); Monocytes % 5.2 %; Platelet Count 360 K/mcL (140-400); Red Blood Count 4.68 M/mcL (4.19-5.50); Red Cell Distribution Width 12.4 % (11.5-14.5); Segmented Neutrophils % 87.6 %; White Blood Count 13.7 K/mcL (4.3-11.1)
[2019-07-15] MEDS ORDERED: Ondansetron ODT 4 MG TAB.RAPDIS SL ONE (13:34)
[2019-07-15] MEDS ORDERED: Ampicillin/Sulbactam 3,000 MG in 0.9 % Sodium Chloride 100 ML IVPB ONE (15:10)
[2019-07-15] MEDS ORDERED: *HR* FentaNYL (PF) 100 MCG/2 ML VIAL IVP STA (15:24)
[2019-07-15] MEDS ORDERED: Naloxone 0.4 MG/ML INJ IVP PRN (15:45)
[2019-07-15] MEDS: 0.9 % Sodium Chloride 1,000 ML IVC SCH (17:08)
[2019-07-15] MEDS: *HR* Promethazine 25 MG/ML VIAL IVP PRN (17:19)
[2019-07-15] MEDS: *HR* HYDROmorphone (PF) 1 MG/ML SYRINGE IVP PRN (17:20)
[2019-07-15] MEDS: Ampicillin/Sulbactam 3,000 MG in 0.9 % Sodium Chloride Mini Bag 100 ML IVPB SCH (17:38)
[2019-07-15] MEDS ORDERED: *HR* FentaNYL PATCH 75 MCG PATCH TD SCH (18:00)
[2019-07-15] MEDS ORDERED: *HR* HYDROmorphone (PF) 1 MG/ML SYRINGE IVP ONE (21:19)
[2019-07-15 21:34] LABS: Bilirubin,Urine Small (Negative); Blood,Urine Negative (Negative); Clarity,Urine Clear (Clear); Color,Urine Dark Yellow (Yellow); Glucose,Urine (UA) Normal (Normal); Ketones,Urine 40 mg/dL (Negative); Leukocyte Esterase,Urine Negative (Negative); Nitrite,Urine Negative (Negative); PH,Urine 6.5 pH Units (5.0-8.0); Protein,Urine 30 mg/dL (Neg-Trace); Urobilinogen,Urine Normal (Normal)
[2019-07-15 21:36] LABS: Bacteria,Urine None Seen per hpf (None-Few); Hyaline Casts,Urine None Seen per lpf (None-Few); RBC,Urine 0-3 per hpf (0-3); Squamous Epithelial Cell,Urine Few per lpf (None-Few); WBC,Urine 0-3 per hpf (0-3)
[2019-07-16] MEDS: *HR* HYDROmorphone (PF) 1 MG/ML SYRINGE IVP PRN (00:02)
[2019-07-16] MEDS: Verapamil ER (24 HR) 180 MG TABLET.ER PO SCH ×2 (00:03→17:37)
[2019-07-16] MEDS: Ondansetron ODT 4 MG TAB.RAPDIS SL PRN ×2 (00:03→14:16)
[2019-07-16] MEDS: *HR* Heparin 5,000 UNIT/ML VIAL SQ SCH ×4 (00:06→21:14)
[2019-07-16] MEDS: Ampicillin/Sulbactam 3,000 MG in 0.9 % Sodium Chloride Mini Bag 100 ML IVPB SCH ×4 (03:17→17:37)
[2019-07-16 05:17] LABS: Basophils % 0.1 %; Hematocrit 39.5 % (37.5-50.1); Hemoglobin 13.7 g/dL (12.9-16.9); Immature Granulocytes % 0.5 % (0-4); Lymphocytes % 8.8 %; Mean Corpuscular HGB Conc 34.7 g/dL (31.6-35.5); Mean Corpuscular Hemoglobin 32.5 pg (28.0-33.3); Mean Corpuscular Volume 93.8 fL (83.0-100.0); Mean Platelet Volume 8.5 fL (9.4-12.4); Monocytes # 0.6 K/mcL (0.0-1.3); Monocytes % 4.9 %; Neutrophils # 9.7 K/mcL (1.6-8.9); Platelet Count 375 K/mcL (140-400); Red Blood Count 4.21 M/mcL (4.19-5.50); Red Cell Distribution Width 12.4 % (11.5-14.5); Segmented Neutrophils % 85.7 %; White Blood Count 11.3 K/mcL (4.3-11.1)
[2019-07-16] MEDS ORDERED: *HR* HYDROmorphone (PF) 1 MG/ML SYRINGE IVP ONE (05:23)
[2019-07-16 05:32] LABS: BUN/Creatinine Ratio 25 (6-26); Blood Urea Nitrogen 18 mg/dL (8-23); Calcium 8.5 mg/dL (8.6-10.3); Carbon Dioxide 26 mEq/L (23-29); Chloride 99 mEq/L (98-107); Glucose 124 mg/dL (70-105); Osmolality,Calculated 281 (280-300); Potassium 3.5 mEq/L (3.5-5.1); Sodium 134 mEq/L (136-145); eGFR For African Americans > 60 (> 60); eGFR For Non-African Americans > 60 (> 60)
[2019-07-16] MEDS: MethylPREDNISolone 40 MG/ML VIAL IVP SCH ×2 (05:45→17:37)
[2019-07-16] MEDS: Pantoprazole 40 MG VIAL IVP SCH ×2 (05:45→17:37)
[2019-07-16] MEDS: *HR* Promethazine 25 MG/ML VIAL IVP PRN ×2 (06:03→17:37)
[2019-07-16] MEDS: 0.9 % Sodium Chloride 1,000 ML IVC SCH (07:00)
[2019-07-16] MEDS ORDERED: Lidocaine Viscous Oral Soln 15 ML SOLUTION MM PRN (09:51)
[2019-07-16] MEDS: Aspirin 81 MG TAB.CHEW PO SCH (10:36)
[2019-07-16] MEDS: Multivit/Ca/Min/Fe/FA 1 TAB TABLET PO SCH (10:36)
[2019-07-16] MEDS: *HR* HYDROmorphone 4 MG TABLET PO PRN ×4 (10:40→21:14)
[2019-07-16] MEDS: Ipratropium/Albuterol Neb 3 ML IH PRN (16:01)
[2019-07-17] MEDS: *HR* HYDROmorphone 4 MG TABLET PO PRN ×7 (00:22→21:52)
[2019-07-17] MEDS: Ampicillin/Sulbactam 3,000 MG in 0.9 % Sodium Chloride Mini Bag 100 ML IVPB SCH ×4 (00:23→17:13)
[2019-07-17] MEDS: *HR* Heparin 5,000 UNIT/ML VIAL SQ SCH ×3 (05:00→22:22)
[2019-07-17] MEDS: MethylPREDNISolone 40 MG/ML VIAL IVP SCH (05:00)
[2019-07-17] MEDS: Pantoprazole 40 MG VIAL IVP SCH ×2 (05:01→17:13)
[2019-07-17 05:52] LABS: Alanine Aminotransferase 10 Units/L (7-52); Albumin 3.7 g/dL (3.5-5.7); Albumin/Globulin Ratio 1.5 (1.1-2.2); Alkaline Phosphatase 73 Units/L (34-104); Aspartate Amino Transferase 10 Units/L (13-39); BUN/Creatinine Ratio 23 (6-26); Bilirubin,Total 0.5 mg/dL (0.3-1.0); Blood Urea Nitrogen 17 mg/dL (8-23); Calcium 8.2 mg/dL (8.6-10.3); Carbon Dioxide 26 mEq/L (23-29); Chloride 100 mEq/L (98-107); Globulin 2.5 g/dL (2.4-3.5); Glucose 123 mg/dL (70-105); Magnesium 2.2 mg/dL (1.6-2.6); Osmolality,Calculated 283 (280-300); Potassium 3.9 mEq/L (3.5-5.1); Sodium 135 mEq/L (136-145); Total Protein 6.2 g/dL (6.4-8.9); eGFR For African Americans > 60 (> 60); eGFR For Non-African Americans > 60 (> 60)
[2019-07-17] MEDS ORDERED: *HR* FentaNYL PATCH 75 MCG PATCH TD SCH (09:00)
[2019-07-17] MEDS: Multivit/Ca/Min/Fe/FA 1 TAB TABLET PO SCH (09:29)
[2019-07-17] MEDS: Aspirin 81 MG TAB.CHEW PO SCH (09:29)
[2019-07-17] MEDS: *HR* Promethazine 25 MG/ML VIAL IVP PRN ×2 (09:34→15:38)
[2019-07-17] MEDS: Ipratropium/Albuterol Neb 3 ML IH PRN (09:45)
[2019-07-17] MEDS: Ondansetron ODT 4 MG TAB.RAPDIS SL PRN (11:25)
[2019-07-17] MEDS: Verapamil ER (24 HR) 180 MG TABLET.ER PO SCH (17:13)
[2019-07-18] MEDS: Ampicillin/Sulbactam 3,000 MG in 0.9 % Sodium Chloride Mini Bag 100 ML IVPB SCH ×2 (00:17→06:36)
[2019-07-18] MEDS: *HR* HYDROmorphone 4 MG TABLET PO PRN ×4 (01:23→10:44)
[2019-07-18 05:18] LABS: Alanine Aminotransferase 9 Units/L (7-52); Albumin 3.3 g/dL (3.5-5.7); Albumin/Globulin Ratio 1.5 (1.1-2.2); Alkaline Phosphatase 61 Units/L (34-104); Aspartate Amino Transferase 10 Units/L (13-39); BUN/Creatinine Ratio 24 (6-26); Bilirubin,Total 0.3 mg/dL (0.3-1.0); Blood Urea Nitrogen 19 mg/dL (8-23); Calcium 7.7 mg/dL (8.6-10.3); Carbon Dioxide 29 mEq/L (23-29); Chloride 100 mEq/L (98-107); Globulin 2.2 g/dL (2.4-3.5); Glucose 96 mg/dL (70-105); Magnesium 2.2 mg/dL (1.6-2.6); Osmolality,Calculated 282 (280-300); Potassium 3.4 mEq/L (3.5-5.1); Sodium 135 mEq/L (136-145); Total Protein 5.5 g/dL (6.4-8.9); eGFR For African Americans > 60 (> 60); eGFR For Non-African Americans > 60 (> 60)
[2019-07-18] MEDS: *HR* Heparin 5,000 UNIT/ML VIAL SQ SCH (05:23)
[2019-07-18] MEDS: Pantoprazole 40 MG VIAL IVP SCH (05:23)
[2019-07-18 06:50] VITALS: BP 131/80
[2019-07-18] MEDS: Aspirin 81 MG TAB.CHEW PO SCH (07:30)
[2019-07-18] MEDS: Multivit/Ca/Min/Fe/FA 1 TAB TABLET PO SCH (07:30)
[2019-07-18] MEDS: Ipratropium/Albuterol Neb 3 ML IH PRN (07:43)
[2019-07-18] MEDS ORDERED: predniSONE 20 MG TABLET PO SCH (09:00)
== END 2019-07-18 11:51 | disposition home or self-care (01) ==
LOC: EMEROOARM 11:30 → 3ANU 11:30 → SUATTDRO 15:38 → 3ANU 16:28
PROVIDERS: ADMIT Internal Medicine; ATTEND Internal Medicine

== ENCOUNTER 2021-12-07 11:05 | Observation (INO) ==
[2021-12-07] MEDS ORDERED: 0.9 % Sodium Chloride 500 ML IVC ONE (11:15)
[2021-12-07] MEDS ORDERED: Nitroglycerin 0.4 MG TAB.SUBL SL PRN (11:15)
[2021-12-07] MEDS ORDERED: Ondansetron 4 MG/2 ML VIAL IVP ONE (11:16)
[2021-12-07] MEDS ORDERED: DilTIAZem 50 MG/50 ML IV.SOLN IVC SCH (11:30)
[2021-12-07 12:15] LABS: Basophils % 0.3 %; Eosinophils % 0.5 %; Hematocrit 44.7 % (37.5-50.1); Hemoglobin 15.9 g/dL (12.9-16.9); Immature Granulocytes % 0.5 % (0-4); Lymphocytes # 1.2 K/mcL (0.6-4.6); Lymphocytes % 17.8 %; Mean Corpuscular HGB Conc 35.6 g/dL (31.6-35.5); Mean Corpuscular Hemoglobin 34.2 pg (28.0-33.3); Mean Corpuscular Volume 96.1 fL (83.0-100.0); Mean Platelet Volume 8.7 fL (9.4-12.4); Monocytes # 0.7 K/mcL (0.0-1.3); Monocytes % 10.8 %; Neutrophils # 4.6 K/mcL (1.6-8.9); Platelet Count 288 K/mcL (140-400); Red Blood Count 4.65 M/mcL (4.19-5.50); Red Cell Distribution Width 11.9 % (11.5-14.5); Segmented Neutrophils % 70.1 %; White Blood Count 6.6 K/mcL (4.3-11.1)
[2021-12-07 12:36] LABS: BUN/Creatinine Ratio 28 (6-26); Blood Urea Nitrogen 22 mg/dL (8-23); Calcium 9.3 mg/dL (8.6-10.3); Carbon Dioxide 26 mEq/L (23-29); Chloride 90 mEq/L (98-107); Glucose 104 mg/dL (70-105); Osmolality,Calculated 278 (280-300); Potassium 2.9 mEq/L (3.5-5.1); Sodium 132 mEq/L (136-145); Troponin I < 0.03 ng/mL (< 0.04); eGFR For African Americans > 60 (> 60); eGFR For Non-African Americans > 60 (> 60)
[2021-12-07] MEDS ORDERED: Ondansetron 4 MG/2 ML VIAL IVP PRN (12:44)
[2021-12-07] MEDS ORDERED: Acetaminophen 325 MG TABLET PO PRN (12:44)
[2021-12-07] MEDS ORDERED: Naloxone 0.4 MG/ML INJ IVP PRN (12:44)
[2021-12-07] MEDS ORDERED: Perflutren Lipid Microsphere 1.3 ML in 0.9 % Sodium Chloride 8.7 ML IVP PRN (12:47)
[2021-12-07 13:39] LABS: Prothrombin Time 11.1 Seconds (9.4-12.1)
[2021-12-07 13:42] LABS: Activated Partial Thrombo Time 61.1 Seconds (26.0-36.0)
[2021-12-07] MEDS ORDERED: Ondansetron ODT 4 MG TAB.RAPDIS SL PRN (13:43)
[2021-12-07] MEDS: *HR* HYDROmorphone 4 MG TABLET PO PRN ×2 (18:06→23:56)
[2021-12-07] MEDS: Morphine Sulfate ER (12 HR) 60 MG TABLET.ER PO SCH (20:23)
[2021-12-07] MEDS ORDERED: *HR* LORazepam 2 MG/ML VIAL IVP PRN ×2 (21:32)
[2021-12-08 03:34] LABS: Hematocrit 43.2 % (37.5-50.1); Hemoglobin 15.1 g/dL (12.9-16.9); Mean Corpuscular Hemoglobin 33.4 pg (28.0-33.3); Mean Corpuscular Volume 95.6 fL (83.0-100.0); Mean Platelet Volume 8.6 fL (9.4-12.4); Platelet Count 288 K/mcL (140-400); Red Blood Count 4.52 M/mcL (4.19-5.50); Red Cell Distribution Width 11.8 % (11.5-14.5); White Blood Count 6.2 K/mcL (4.3-11.1)
[2021-12-08 03:54] LABS: BUN/Creatinine Ratio 25 (6-26); Blood Urea Nitrogen 19 mg/dL (8-23); Calcium 8.8 mg/dL (8.6-10.3); Carbon Dioxide 24 mEq/L (23-29); Chloride 93 mEq/L (98-107); Chol/HDL Ratio 2.7 (0-4.9); Cholesterol 208 mg/dL (< 200); Glucose 131 mg/dL (70-105); HDL Cholesterol 77 mg/dL (40-59); LDL Cholesterol,Calculated 96 mg/dL (< 100); Magnesium 1.7 mg/dL (1.6-2.6); Osmolality,Calculated 274 (280-300); Potassium 3.4 mEq/L (3.5-5.1); Sodium 130 mEq/L (136-145); Triglycerides 177 mg/dL (< 150); eGFR For African Americans > 60 (> 60); eGFR For Non-African Americans > 60 (> 60)
[2021-12-08] MEDS: Morphine Sulfate ER (12 HR) 60 MG TABLET.ER PO SCH ×2 (08:28→20:13)
[2021-12-08] MEDS ORDERED: Morphine Sulfate 2 MG/ML SYRINGE IVP ONE (10:30)
[2021-12-08] MEDS ORDERED: *HR* Heparin 5,000 UNIT/ML VIAL IVP ONE (11:08)
[2021-12-08] MEDS ORDERED: Prochlorperazine 10 MG/2 ML VIAL IVP PRN (11:08)
[2021-12-08] MEDS ORDERED: *HR* Heparin 5,000 UNIT/ML VIAL IVP PRN ×2 (11:08)
[2021-12-08 11:45] LABS: Hematocrit 44.3 % (37.5-50.1); Hemoglobin 15.4 g/dL (12.9-16.9); Mean Corpuscular HGB Conc 34.8 g/dL (31.6-35.5); Mean Corpuscular Hemoglobin 33.6 pg (28.0-33.3); Mean Corpuscular Volume 96.5 fL (83.0-100.0); Mean Platelet Volume 8.5 fL (9.4-12.4); Platelet Count 272 K/mcL (140-400); Red Blood Count 4.59 M/mcL (4.19-5.50); Red Cell Distribution Width 11.9 % (11.5-14.5); White Blood Count 6.1 K/mcL (4.3-11.1)
[2021-12-08 11:53] LABS: Heparin anti-factor XA UFH < 0.04 IU/mL (0.30-0.70)
[2021-12-08 11:54] LABS: Prothrombin Time 11.1 Seconds (9.4-12.1)
[2021-12-08] MEDS: *HR* HYDROmorphone 4 MG TABLET PO PRN (13:31)
[2021-12-08] MEDS: Heparin 25,000UNIT/250ML 1/2NS 25,000 UNIT/250 ML IV.SOLN IVC SCH (13:36)
[2021-12-08] MEDS: Verapamil ER (24 HR) 120 MG TABLET.ER PO SCH ×2 (15:43→20:11)
[2021-12-09 04:04] LABS: Basophils % 0.5 %; Eosinophils # 0.1 K/mcL (0.0-0.6); Eosinophils % 1.5 %; Hematocrit 43.5 % (37.5-50.1); Hemoglobin 15.2 g/dL (12.9-16.9); Immature Granulocytes % 0.5 % (0-4); Lymphocytes # 1.4 K/mcL (0.6-4.6); Lymphocytes % 24.7 %; Mean Corpuscular HGB Conc 34.9 g/dL (31.6-35.5); Mean Corpuscular Volume 97.3 fL (83.0-100.0); Mean Platelet Volume 8.7 fL (9.4-12.4); Monocytes # 0.6 K/mcL (0.0-1.3); Monocytes % 10.3 %; Neutrophils # 3.4 K/mcL (1.6-8.9); Platelet Count 278 K/mcL (140-400); Red Blood Count 4.47 M/mcL (4.19-5.50); Red Cell Distribution Width 11.9 % (11.5-14.5); Segmented Neutrophils % 62.5 %; White Blood Count 5.5 K/mcL (4.3-11.1)
[2021-12-09 04:23] LABS: Alanine Aminotransferase 14 Units/L (7-52); Albumin/Globulin Ratio 1.9 (1.1-2.2); Alkaline Phosphatase 51 Units/L (34-104); Aspartate Amino Transferase 14 Units/L (13-39); BUN/Creatinine Ratio 26 (6-26); Bilirubin,Total 0.7 mg/dL (0.3-1.0); Blood Urea Nitrogen 22 mg/dL (8-23); Calcium 8.8 mg/dL (8.6-10.3); Carbon Dioxide 29 mEq/L (23-29); Chloride 98 mEq/L (98-107); Globulin 2.1 g/dL (2.4-3.5); Glucose 152 mg/dL (70-105); Osmolality,Calculated 282 (280-300); Potassium 3.7 mEq/L (3.5-5.1); Sodium 133 mEq/L (136-145); Total Protein 6.1 g/dL (6.4-8.9); eGFR For African Americans > 60 (> 60); eGFR For Non-African Americans > 60 (> 60)
[2021-12-09] MEDS: Verapamil ER (24 HR) 120 MG TABLET.ER PO SCH ×2 (08:53→21:13)
[2021-12-09] MEDS: Morphine Sulfate ER (12 HR) 60 MG TABLET.ER PO SCH ×2 (08:53→21:14)
[2021-12-09] MEDS: Heparin 25,000UNIT/250ML 1/2NS 25,000 UNIT/250 ML IV.SOLN IVC SCH (10:33)
[2021-12-09] MEDS: *HR* HYDROmorphone 4 MG TABLET PO PRN (12:44)
[2021-12-09] MEDS ORDERED: *HR* Rivaroxaban 10 MG TABLET PO SCH (18:45)
[2021-12-10] MEDS: *HR* HYDROmorphone 4 MG TABLET PO PRN (01:10)
[2021-12-10 03:53] VITALS: TEMP 97.8; O2SAT 95
[2021-12-10 07:00] VITALS: BP 161/93; PULSE 83
[2021-12-10] MEDS: Verapamil ER (24 HR) 120 MG TABLET.ER PO SCH (08:01)
[2021-12-10] MEDS: Morphine Sulfate ER (12 HR) 60 MG TABLET.ER PO SCH (08:01)
== END 2021-12-10 11:48 | disposition home or self-care (01) ==
LOC: EMEROOARM 11:05 → 3BNU 11:05 → SUATTDRO 14:56 → 3BNU 16:00
PROVIDERS: ADMIT Internal Medicine; ATTEND Family Medicine